=== PATIENT | male | born 1940 | race Caucasian/White ===

== ENCOUNTER 2018-12-21 09:42 | Outpatient (REF) | payer MEDICARE, BC, SELFPAY ==
[2018-12-21 13:50] LABS: Anion Gap 14.2 mmol/L (3-11); BUN 49 mg/dL (7-18); CO2 20.8 mmol/L (21.0-32.0); CREATININE 1.54 mg/dL (0.70-1.30); Calcium 9.3 mg/dL (8.5-10.1); Chloride 104 mmol/L (98-107); Estimated GFR 43.68 (mL/min/1.73m2); Glucose 126 mg/dL (70-100); Potassium 4.1 mmol/L (3.5-5.1); Sodium 139 mmol/L (136-145); TSH 2.72 uIU/mL (0.358-3.74)
== END 2018-12-21 10:02 ==
LOC: NCHCN 09:42
PROVIDERS: PCP Internal Medicine; Visit Provider Internal Medicine
DX: E03.9 Hypothyroidism, unspecified (principal); E11.9 Type 2 diabetes mellitus without complications
CPT/HCPCS: 80048; 84443

== ENCOUNTER 2018-12-21 12:05 | Outpatient (CLI) | payer MEDICARE, BC, SELFPAY ==
--- NOTE | 2018-12-21 10:09 | DI.RAD_ITS ---
SYMPTOM/DIAGNOSIS: SHOULDER PAIN, M25.512 LEFT SHOULDER: There is spurring at the undersurface of the acromion and mild spurring at the AC joint and glenoid. The glenohumeral joint is well maintained. Minimal spurring is seen at the greater and lesser tuberosities. No tendon or joint space calcifications are seen. IMPRESSION: Spurring at the undersurface of the acromion.
== END 2018-12-21 12:25 ==
PROVIDERS: PCP Internal Medicine; Visit Provider Internal Medicine
DX: M25.512 Pain in left shoulder (principal); M75.82 Other shoulder lesions, left shoulder
CPT/HCPCS: 73030

== ENCOUNTER → 2019-01-14 09:51 | Outpatient (BNVA) | payer MEDICARE, BC, SELFPAY | PROVIDERS: PCP Internal Medicine; Referring Provider Internal Medicine; Visit Provider Student in an Organized Health Care Education/Training Program | DX: M25.512 Pain in left shoulder (principal); M19.012 Primary osteoarthritis, left shoulder; I10 Essential (primary) hypertension | CPT/HCPCS: 20610; 99213; 99214; J1040 ==

== ENCOUNTER → 2019-02-25 09:00 | Outpatient (BNVA) | payer MEDICARE, BC, SELFPAY | PROVIDERS: PCP Internal Medicine; Referring Provider Internal Medicine; Visit Provider Student in an Organized Health Care Education/Training Program | DX: M75.82 Other shoulder lesions, left shoulder (principal); Z98.890 Other specified postprocedural states; I10 Essential (primary) hypertension; E11.9 Type 2 diabetes mellitus without complications | CPT/HCPCS: 99213 ==

== ENCOUNTER 2019-03-07 10:22 | Emergency (ER) | payer MEDICARE, BC, SELFPAY ==
[2019-03-07 10:29] VITALS: BP 156/95; PULSE 60; RESP 16; TEMP 36.5; O2SAT 98
--- NOTE | 2019-03-07 10:55 | W.ED.GENAD ---
Discharge Plan Disposition Patient Disposition: HOME Condition: Fair Discharge Details Chief Complaint: Orthopedic Clinical Impression: Tendonitis of left rotator cuff, Biceps tendinitis Primary Care Provider: Brady Brown ED Provider: Reva Jacobsen Home Meds and New Rx's Prescriptions: New ibuprofen 600 mg tablet 600 mg PO QID PRN (Reason: pain) Qty: 20 RF: 0 acetaminophen [Tylenol Extra Strength] 500 mg tablet 500 mg PO Q6H PRN (Reason: pain) Qty: 20 RF: 0 Continued Lactobacillus acidophilus 1 EACH capsule 1 ea PO DAILY RF: 0 acyclovir 400 MG tablet 400 mg PO DAILY RF: 0 simvastatin 40 MG tablet 40 mg PO DAILY RF: 0 tamsulosin 0.4 MG capsule 0.4 mg PO DAILY RF: 0 levothyroxine 50 MCG tablet 50 mcg PO DAILY RF: 0 omeprazole 20 MG capsule,delayed release(DR/EC) 20 mg PO DAILY RF: 0 allopurinol 300 MG tablet 300 mg PO DAILY RF: 0 hydrochlorothiazide 25 MG tablet 25 mg PO DAILY RF: 0 lisinopril 40 MG tablet 40 mg PO DAILY RF: 0 methylphenidate HCl [Concerta] 36 MG tablet extended release 24hr 36 mg PO DAILY RF: 0 Discharge Instructions Instructions: Tendinitis (ED) Additional Instructions: Encourage hydration. Please continue with exercises as advised by orthopedics. Do not do this with weight, gentle range of motion exercises only. Tylenol and/or ibuprofen as prescribed to help with discomfort. You may try topical options such as Lidoderm or Salonpas patches. Please follow-up with orthopedics as discussed. MRI order has been placed by Dr. Eng. Please contact physical therapy and begin this to help with discomfort. If you develop fever/chills, increased pain or other new/worsening symptoms please seek care urgently once again Referrals: Andre Eng MD [ [facility] STAFF PHYSICIAN] - Discharge Data Discharge Date/Time-TO BE ENTERED AT DEPARTURE: 03/07/19 11:24 Medical Decision Making Patient is an 78-year-old [id number] male presents today with chief complaint of left shoulder pain. Patient has had chronic left shoulder pain, has been evaluated by orthopedics historically. Underwent a injection for rotator cuff tendinitis approximately 2 months ago with good results. He has had multiple flares. Reports that 3 days ago he was using a chainsaw overhead when the pain came back with a vengeance. States that since that time he has had increased pain. Has been using Aleve with minimal results. Denies any fevers or chills. Did not fall or have any acute trauma to the shoulder. No erythema or warmth. Denies any new altered sensation although he does endorse chronic numbness along the ulnar nerve distribution which remains unchanged On exam, patient appears comfortable and nontoxic appearing. Shoulder is not swollen or erythematous. No warmth to palpation. He is point tender over the biceps tendon with a positive speeds exam. He is tender with internal and external rotation, the pain is limiting exam. I am concerned for rotator cuff injury, perhaps progression of previous injury. As the patient has seen Dr. Eng historically, I did consult with him to let him know about the progression. He did come and evaluate the patient advises that this is likely acute flare with possible worsening of his prior rotator cuff tear. He encouraged use of ibuprofen. I will also augment this with Tylenol and lidocaine patch. He advised the patient seek physical therapy, they are to have a referral from orthopedics. He was scheduled for an outpatient MRI. Discussed this plan with the patient and his were in agreement. HPI General Mode of arrival: ambulatory. Date/Time Provider Initiated Documentation: 03/07/19 10:30. Limitations to Documentation: no limitations. Information obtained by: patient, family (accompanied by ) and RN notes reviewed. History of Present Illness 78 year old M presents to the emergency department with the chief complaint of left shoulder pain, described as severe, with intensity rated at 9. Quality is described as stabbing, and is localized to the left and upper extremity. Patient reports no radiation. Patient started experiencing this month(s) (with exacerbaton 3 days ago) and it has been intermittent. Immobilization improves symptom(s), Movement worsens symptoms . Patient notes no other symptoms.; denies chest pain, cough, fever/chills, headaches, nausea/vomiting, rash, shortness of breath and weakness. Patient did receive the following treatments prior to arrival, none Related Data Home Medications Medication Instructions Recorded Confirmed acyclovir 400 mg PO DAILY 03/07/13 03/07/19 allopurinol 300 mg PO DAILY 03/07/13 03/07/19 hydrochlorothiazide 25 mg PO DAILY 03/07/13 03/07/19 levothyroxine 50 mcg PO DAILY 03/07/13 03/07/19 lisinopril 40 mg PO DAILY 03/07/13 03/07/19 methylphenidate HCl [Concerta] 36 mg PO DAILY 03/07/13 03/07/19 omeprazole 20 mg PO DAILY 03/07/13 03/07/19 simvastatin 40 mg PO DAILY 03/07/13 03/07/19 tamsulosin 0.4 mg PO DAILY 03/07/13 03/07/19 Lactobacillus acidophilus 1 ea PO DAILY 11/30/15 03/07/19 acetaminophen [Tylenol Extra 500 mg PO Q6H PRN #20 tab 03/07/19 Strength] ibuprofen 600 mg PO QID PRN #20 tab 03/07/19 Previous Rx's Medication Instructions Recorded acetaminophen [Tylenol Extra 500 mg PO Q6H PRN #20 tab 03/07/19 Strength] ibuprofen 600 mg PO QID PRN #20 tab 03/07/19 Allergies Allergy/AdvReac Type Severity Reaction Status Date / Time tolmetin Allergy Unknown Unverified 03/07/19 10:34 General Stated Complaint: Orthopedic MICHAEL: 4 Review of Systems Constitutional Reports as per HPI, Denies chills, Denies fever(s), Denies headache(s) and Denies weakness ENT Denies headache(s) Cardiovascular Reports as per HPI Respiratory Reports as per HPI and Denies cough Musculoskeletal Reports as per HPI and Denies tingling Integumentary/Breasts Reports as per HPI, Denies rash and Denies wounds Neurologic Reports as per HPI, Denies headache(s), Denies tingling, Reports paresthesias (chronic ulnar paresthesias, no acute change in this) and Denies weakness [facility] Medical History Diabetes Gout Hypertension Hypothyroid Surgical History Cholecystectomy Social History Smoking/Tobacco Use Status: Former Tobacco Use Alcohol Intake: never Drug use: Never Do you feel safe at home: Yes Do you feel safe in your relationship?: Yes Exam Const General: cooperative, healthy appearing, comfortable, no acute distress, well developed and well groomed Nutritional Appearance: average body habitus and well nourished Orientation: alert and awake Chest Chest: normal inspection of the chest and normal palpation of entire chest wall Resp Effort & Inspection: normal respiratory effort, able to speak in complete sentences and no respiratory distress Cardio Rate: regular rate Rhythm: regular rhythm Back/Spine/Pelvis Cervical Spine: normal cervical lordosis, cervical ROM normal, No cervical muscular tenderness, No pain with cervical ROM, No cervical spasm and No cervical spinal tenderness Thoracic/Lumbar Spine: thoracic and lumbar spine normal to inspection Skin General skin exam: no rashes or lesions noted Lesions: no lesions Rashes: no rashes Trauma: no lacerations or abrasions Neuro General: alert and awake Cognition: normal cognition Speech: speech normal Gait: normal gait Motor: muscle tone normal throughout Sensory Exam: no sensory deficits noted Extrem General: normal capillary refill, no joint enlargement and normal gait Right upper extremity: normal to inspection Left upper extremity: normal capillary refill, no joint enlargement, shoulder/upper arm Details: tenderness Location: over the biceps tendon and over the subacromial bursa, axillary nerve sensory function normal, abnormal ROM Details: pain with active ROM Details: in extension (past 30*), in flexion (past 90*) and in internal rotation (very limited) and pain with passive ROM Details: in extension and in internal rotation and other (+Speeds, +Neer and Hawkin); no swelling, no abrasions, no lacerations, no ecchymosis, no crepitus, no foreign bodies, no penetrating wound, no deformity and no unsual warmth, elbow/forearm Details: normal to inspection; no tenderness and no swelling and hand (5/5 salt grinder strength); ROM limited Psych Appearance: grossly normal and well kempt Mental Status: mental status grossly normal Speech and Movement: speech and movement normal Course Vital Signs Temperature 36.5 C 03/07/19 10:29 Pulse 60 03/07/19 10:29 Respiratory Rate 16 03/07/19 10:29 Blood Pressure 156/95 H 03/07/19 10:29 Pulse Oximetry 98 03/07/19 10:29 Temperature 36.5 C 03/07/19 10:29 Temperature Source Temporal Artery Scan 03/07/19 10:29 Pulse 60 03/07/19 10:29 Respiratory Rate 16 03/07/19 10:29 Respiratory Effort Non-Labored 03/07/19 10:32 Blood Pressure 156/95 H 03/07/19 10:29 Blood Pressure Position Sitting 03/07/19 10:29 Pulse Oximetry 98 03/07/19 10:29 Oxygen Delivery Method Room Air 03/07/19 10:29 Oxygen Flow Rate 0 03/07/19 10:29 Pain Level 9 03/07/19 10:32 Comment 03/07/19 10:29
--- NOTE | 2019-03-07 11:09 | ED.GENADUL_ITS ---
Discharge Plan Disposition Patient Disposition: HOME Condition: Fair Discharge Details Chief Complaint: Orthopedic Clinical Impression: Tendonitis of left rotator cuff, Biceps tendinitis Primary Care Provider: Brady Brown ED Provider: Reva Jacobsen Home Meds and New Rx's Prescriptions: New ibuprofen 600 mg tablet 600 mg PO QID PRN (Reason: pain) Qty: 20 RF: 0 acetaminophen [Tylenol Extra Strength] 500 mg tablet 500 mg PO Q6H PRN (Reason: pain) Qty: 20 RF: 0 Continued Lactobacillus acidophilus 1 EACH capsule 1 ea PO DAILY RF: 0 acyclovir 400 MG tablet 400 mg PO DAILY RF: 0 simvastatin 40 MG tablet 40 mg PO DAILY RF: 0 tamsulosin 0.4 MG capsule 0.4 mg PO DAILY RF: 0 levothyroxine 50 MCG tablet 50 mcg PO DAILY RF: 0 omeprazole 20 MG capsule,delayed release(DR/EC) 20 mg PO DAILY RF: 0 allopurinol 300 MG tablet 300 mg PO DAILY RF: 0 hydrochlorothiazide 25 MG tablet 25 mg PO DAILY RF: 0 lisinopril 40 MG tablet 40 mg PO DAILY RF: 0 methylphenidate HCl [Concerta] 36 MG tablet extended release 24hr 36 mg PO DAILY RF: 0 Discharge Instructions Instructions: Tendinitis (ED) Additional Instructions: Encourage hydration. Please continue with exercises as advised by orthopedics. Do not do this with weight, gentle range of motion exercises only. Tylenol and/or ibuprofen as prescribed to help with discomfort. You may try topical options such as Lidoderm or Salonpas patches. Please follow-up with orthopedics as discussed. MRI order has been placed by Dr. Eng. Please contact physi marlon therapy and begin this to help with discomfort. If you develop fever/chills, increased pain or other new/worsening symptoms please seek care urgently once again Referrals: Andre Eng MD [ [facility] STAFF PHYSICIAN] - Discharge Data Discharge Date/Time-TO BE ENTERED AT DEPARTURE: 03/07/19 11:24 Medical Decision Making Patient is an 78-year-old [id number] male presents today with chief complaint of left shoulder pain. Patient has had chronic left shoulder pain, has been evaluated by orthopedics historically. Underwent a injection for rotator cuff tendinitis approximately 2 months ago with good results. He has had multiple flares. Reports that 3 days ago he was using a chainsaw overhead when the pain came back with a vengeance. States that since that time he has had increased pain. Has been using Aleve with minimal results. Denies any fevers or chills. Did not fall or have any acute trauma to the shoulder. No erythema or warmth. Denies any new altered sensation although he does endorse chronic numbness along the ulnar nerve distribution which remains unchanged On exam, patient appears comfortable and nontoxic appearing. Shoulder is not swollen or erythematous. No warmth to palpation. He is point tender over the biceps tendon with a positive speeds exam. He is tender with internal and external rotation, the pain is limiting exam. I am concerned for rotator cuff injury, perhaps progression of previous injury. As the patient has seen Dr. Eng historically, I did consult with him to let him know about the progression. He did come and evaluate the patient advises that this is likely acute flare with possible worsening of his prior rotator cuff tear. He enc ouraged use of ibuprofen. I will also augment this with Tylenol and lidocaine patch. He advised the patient seek physical therapy, they are to have a referral from orthopedics. He was scheduled for an outpatient MRI. Discussed this plan with the patient and his were in agreement. HPI General Mode of arrival: ambulatory . Date/Time Provider Initiated Documentation: 03/07/19 10:30 . Limitations to Documentation: no limitations . Information obtained by: patient, family (accompanied by ) and RN notes reviewed . History of Present Illness 78 year old M presents to the emergency department with the chief complaint of left shoulder pain, described as severe, with intensity rated at 9. Quality is described as stabbing, and is localized to the left and upper extremity. Patient reports no radiation. Patient started experiencing this month(s) (with exacerbaton 3 days ago) and it has been intermittent. Immobilization improves symptom(s), Movement worsens symptoms . Patient notes no other symptoms.; denies chest pain, cough, fever/chills, headaches, nausea/vomiting, rash, shortness of breath and weakness. Patient did receive the following treatments prior to arrival, none Related Data Home Medications Medication Instructions Recorded Confirmed acyclovir 400 mg PO DAILY 03/07/13 03/07/19 allopurinol 300 mg PO DAILY 03/07/13 03/07/19 hydrochlorothiazide 25 mg PO DAILY 03/07/13 03/07/19 levothyroxine 50 mcg PO DAILY 03/07/13 03/07/19 lisinopril 40 mg PO DAILY 03/07/13 03/07/19 methylphenidate HCl [Concerta] 36 mg PO DAILY 03/07/13 03/07/19 omeprazole 20 mg PO DAILY 03/07/13 03/07/19 simvastatin 40 mg PO DAILY 03/07/13 03/07/19 tamsulosin 0.4 mg PO DAILY 03/07/13 03/07/19 Lactobacillus acidophilus 1 ea PO DAILY 11/30/15 03/07/19 acetaminophen [Tylenol Extra 500 mg PO Q6H PRN #20 tab 03/07/19 Strength] ibuprofen 600 mg PO QID PRN #20 tab 03/07/19 Previous Rx's Medication Instructions Recorded acetaminophen [Tylenol Extra 500 mg PO Q6H PRN #20 tab 03/07/19 Strength] ibuprofen 600 mg PO QID PRN #20 tab 03/07/19 Allergies Allergy/AdvReac Type Severity Reaction Status Date / Time tolmetin Allergy Unknown Unverified 03/07/19 10:34 General Stated Complaint: Orthopedic MICHAEL: 4 Review of Systems Constitutional Reports as per HPI, Denies chills, Denies fever(s), Denies headache(s) and Denies weakness ENT Denies headache(s) Cardiovascular Reports as per HPI Respiratory Reports as per HPI and Denies cough Musculoskeletal Reports as per HPI and Denies tingling Integumentary/Breasts Reports as per HPI, Denies rash and Denies wounds Neurologic Reports as per HPI, Denies headache(s), Denies tingling, Reports paresthesias (chronic ulnar paresthesias, no acute change in this) and Denies weakness [facility] Medical History Diabetes Gout Hypertension Hypothyroid Surgical History Cholecystectomy Social History Smoking/Tobacco Use Status: Former Tobacco Use Alcohol Intake: never Drug use: Never Do you feel safe at home: Yes Do you feel safe in your relationship?: Yes Exam Const General: cooperative, healthy appearing, comfortable, no acute distress, well developed and well groomed Nutritional Appearance: average body habitus and well nourished Orientation: alert and awake Chest Chest: normal inspection of the chest and normal palpation of entire chest wall Resp Effort & Inspection: normal respiratory effort, able to speak in complete sentences and no respiratory distress Cardio Rate: regular rate Rhythm: regular rhythm Back/Spine/Pelvis Cervical Spine: normal cervical lordosis, cervical ROM normal, No cervical muscular tenderness, No pain with cervical ROM, No cervical spasm and No cervical spinal tenderness Thoracic/Lumbar Spine: thoracic and lumbar spine normal to inspection Skin General skin exam: no rashes or lesions noted Lesions: no lesions Rashes: no rashes Trauma: no lacerations or abrasions Neuro General: alert and awake Cognition: normal cognition Speech: speech normal Gait: normal gait Motor: muscle tone normal throughout Sensory Exam: no sensory deficits noted Extrem General: normal capillary refill, no joint enlargement and normal gait Right upper extremity: normal to inspection Left upper extremity: normal capillary refill, no joint enlargement, shoulder/upper arm Details: tenderness Location: over the biceps tendon and over the subacromial bursa, axillary nerve sensory function normal, abnormal ROM Details: pain with active ROM Details: in extension (past 30*), in flexion (past 90*) and in internal rotation (very limited) and pain with passive ROM Details: in extension and in internal rotation and other (+Speeds, +Neer and Hawkin); no swelling, no abrasions, no lacerations, no ecchymosis, no crepitus, no foreign bodies, no penetrating wound, no deformity and no unsual warmth, elbow/forearm Details: normal to inspection; no tenderness and no swelling and hand (5/5 day camp counselor strength); ROM limited Psych Appearance: grossly normal and well kempt Mental Status: mental status grossly normal Speech and Movement: speech and movement normal Course Vital Signs Temperature 36.5 C 03/07/19 10:29 Pulse 60 03/07/19 10:29 Respiratory Rate 16 03/07/19 10:29 Blood Pressure 156/95 H 03/07/19 10:29 Pulse Oximetry 98 03/07/19 10:29 Temperature 36.5 C 03/07/19 10:29 Temperature Source Temporal Artery Scan 03/07/19 10:29 Pulse 60 03/07/19 10:29 Respiratory Rate 16 03/07/19 10:29 Respiratory Effort Non-Labored 03/07/19 10:32 Blood Pressure 156/95 H 03/07/19 10:29 Blood Pressure Position Sitting 03/07/19 10:29 Pulse Oximetry 98 03/07/19 10:29 Oxygen Delivery Method Room Air 03/07/19 10:29 Oxygen Flow Rate 0 03/07/19 10:29 Pain Level 9 03/07/19 10:32 Comment 03/07/19 10:29
[2019-03-07 11:11] VITALS: BP 156/95; PULSE 60; RESP 16; TEMP 36.5; O2SAT 98
[2019-03-07] MEDS: Lidocaine 5% Patch 1 PATCH TP (11:11)
== END 2019-03-07 11:24 | disposition home or self-care (01) ==
PROVIDERS: Emergency Provider Physician Assistant; PCP Internal Medicine
DX: M75.82 Other shoulder lesions, left shoulder (principal); M75.22 Bicipital tendinitis, left shoulder
CPT/HCPCS: 99283

== ENCOUNTER 2019-04-16 12:05 | Outpatient (REF) | payer MEDICARE, BC, SELFPAY ==
[2019-04-16 21:31] LABS: Abs Immature Grans 0.01 k/cumm (0.0-0.09); Absolute Basophil Count 0.03 k/cumm (0.0-0.2); Absolute Lymphocyte Count 1.75 k/cumm (1.2-3.4); Absolute Monocyte Count 0.62 k/cumm (0.11-0.7); Absolute Neutrophil Count 3.91 k/cumm (1.2-6.7); Basophils % 0.5; Eosinophils % 3.1; HCT 41.4 % (40.0-50.0); HGB 14.3 g/dL (13.5-17.5); Immature Grans % 0.2; Lymphocytes % 26.8; Mean Corp. HGB Concentration 34.5 g/dL (32.0-36.0); Mean Corpuscular Hemoglobin 32.3 pg (27.0-33.0); Mean Corpuscular Volume 93.5 fL (80-95); Mean Platelet Volume 10.2 fL (8.0-11.0); Monocytes % 9.5; Neutrophils % 59.9; Platelet Count 180 x1000/uL (130-400); RBC 4.43 m/cumm (4.50-6.00); RBC Distribution Width 14.4 % (11.8-14.1); White Blood Cell Count 6.52 k/cumm (4.4-10.8)
[2019-04-16 22:40] LABS: ALT 20 U/L (12-78); AST 10 U/L (15-37); Alkaline Phosphatase 104 U/L (46-116); Anion Gap 16.2 mmol/L (3-11); Bilirubin, Total 0.4 mg/dL (0.2-1.0); CO2 16.8 mmol/L (21.0-32.0); CREATININE 2.73 mg/dL (0.70-1.30); Calcium 9.4 mg/dL (8.5-10.1); Chloride 104 mmol/L (98-107); Estimated GFR 22.56 (mL/min/1.73m2); Glucose 108 mg/dL (70-100); Lipase 384 U/L (73-393); Potassium 4.8 mmol/L (3.5-5.1); Sodium 137 mmol/L (136-145); TSH 1.74 uIU/mL (0.358-3.74); Total Protein 7.3 g/dL (6.4-8.2)
[2019-04-16 23:09] LABS: BUN 88 mg/dL (7-18)
== END 2019-04-16 12:25 ==
LOC: NCHCN 12:05
PROVIDERS: PCP Internal Medicine; Visit Provider Internal Medicine
DX: R53.83 Other fatigue (principal); R11.0 Nausea
CPT/HCPCS: 80053; 83690; 84443; 85025

== ENCOUNTER 2019-04-18 13:37 | Outpatient (REF) | payer MEDICARE, BC, SELFPAY ==
[2019-04-18 21:25] LABS: CREATININE 2.45 mg/dL (0.70-1.30); Estimated GFR 25.56 (mL/min/1.73m2)
[2019-04-18 22:27] LABS: BUN 81 mg/dL (7-18)
== END 2019-04-18 13:57 ==
LOC: NCHCN 13:37
PROVIDERS: PCP Family Medicine; Visit Provider Family Medicine
DX: N18.3 Chronic kidney disease, stage 3 (moderate) (principal)
CPT/HCPCS: 84520; 82565

== ENCOUNTER 2019-04-23 01:01 | Outpatient (CLI) | payer MEDICARE, BC, SELFPAY ==
--- NOTE | 2019-04-23 15:44 | DI.US_ITS ---
SYMPTOM/DIAGNOSIS: ACUTE CHRONIC KIDNEY INJURY, N17.9 RENAL ULTRASOUND: The right kidney measures 10.4 by 6.4 by 5.8 cm. The left kidney measures 10.8 by 5.3 by 6.4 cm. There is no evidence of nephrolithiasis or hydronephrosis. The prevoid bladder contains 198 cc's. The postvoid bladder contains 70 cc's. Both ureteral jets were visualized. The prostate is enlarged measuring up to 78 cc's. IMPRESSION: No evidence of nephrolithiasis or hydronephrosis or a mass. Prostatic enlargement is demonstrated. There is some increase in the postvoid residual.
== END 2019-04-23 01:21 ==
PROVIDERS: PCP Internal Medicine; Visit Provider Internal Medicine
DX: N17.9 Acute kidney failure, unspecified (principal); N40.0 Benign prostatic hyperplasia without lower urinary tract symptoms
CPT/HCPCS: 76770

== ENCOUNTER 2019-04-26 12:23 | Outpatient (REF) | payer MEDICARE, BC, SELFPAY ==
[2019-04-26 21:18] LABS: Anion Gap 12.8 mmol/L (3-11); BUN 45 mg/dL (7-18); CO2 18.2 mmol/L (21.0-32.0); CREATININE 1.65 mg/dL (0.70-1.30); Calcium 8.9 mg/dL (8.5-10.1); Chloride 108 mmol/L (98-107); Estimated GFR 40.34 (mL/min/1.73m2); Glucose 106 mg/dL (70-100); Potassium 4.4 mmol/L (3.5-5.1); Sodium 139 mmol/L (136-145)
== END 2019-04-26 12:43 ==
LOC: NCHCN 12:23
PROVIDERS: PCP Internal Medicine; Visit Provider Internal Medicine
DX: N17.9 Acute kidney failure, unspecified (principal); R94.4 Abnormal results of kidney function studies; E11.9 Type 2 diabetes mellitus without complications; I10 Essential (primary) hypertension
CPT/HCPCS: 80048

== ENCOUNTER 2019-06-27 17:00 | Outpatient (REF) | payer MEDICARE, BC, SELFPAY ==
[2019-06-27 21:27] LABS: Anion Gap 14.2 mmol/L (3-11); BUN 64 mg/dL (7-18); CO2 18.8 mmol/L (21.0-32.0); Calcium 9.3 mg/dL (8.5-10.1); Chloride 107 mmol/L (98-107); Estimated GFR 32.31 (mL/min/1.73m2); Glucose 102 mg/dL (70-100); Potassium 4.6 mmol/L (3.5-5.1); Sodium 140 mmol/L (136-145)
== END 2019-06-27 17:20 ==
LOC: NCHCN 17:00
PROVIDERS: PCP Internal Medicine; Visit Provider Internal Medicine
DX: N17.9 Acute kidney failure, unspecified (principal)
CPT/HCPCS: 80048

== ENCOUNTER 2019-07-26 13:01 | Outpatient (REF) | payer MEDICARE, BC, SELFPAY ==
[2019-07-26 21:36] LABS: Anion Gap 11.3 mmol/L (3-11); BUN 40 mg/dL (7-18); CO2 21.7 mmol/L (21.0-32.0); CREATININE 1.58 mg/dL (0.70-1.30); Calcium 9.2 mg/dL (8.5-10.1); Chloride 107 mmol/L (98-107); Glucose 110 mg/dL (70-100); Potassium 4.3 mmol/L (3.5-5.1); Sodium 140 mmol/L (136-145)
== END 2019-07-26 13:21 ==
LOC: NCHCN 13:01
PROVIDERS: PCP Internal Medicine; Visit Provider Internal Medicine
DX: E11.9 Type 2 diabetes mellitus without complications (principal); N18.3 Chronic kidney disease, stage 3 (moderate); I10 Essential (primary) hypertension
CPT/HCPCS: 80048

== ENCOUNTER → 2019-08-26 13:22 | Outpatient (BNVA) | payer MEDICARE, BC, SELFPAY | PROVIDERS: PCP Internal Medicine; Referring Provider Internal Medicine; Visit Provider Student in an Organized Health Care Education/Training Program | DX: M75.82 Other shoulder lesions, left shoulder (principal); Z98.890 Other specified postprocedural states | CPT/HCPCS: 99213 ==

== ENCOUNTER 2019-08-29 02:19 | Outpatient (CLI) | payer MEDICARE, BC, SELFPAY ==
--- NOTE | 2019-08-29 13:47 | DI.MRI_ITS ---
EXAM: MR UPPER JOINT LT WO CLINICAL HISTORY: continued left shoulder pain, tendinitis of lt rotator cuff, M75.82. TECHNIQUE: Multiplanar multisequence MRI was performed. COMPARISON: No previous for comparison. FINDINGS: There is some patient motion artifact. There is a full-thickness tear of the supraspinatus tendon at its insertion site onto the greater tub erosity. There is a gap of approximately 1.2 centimeters. There is increased signal seen in the subscapularis tendon at its insertion site consistent with a pa rtial tear. The infraspinatus and teres minor tendons are intact. The biceps tendon has a normal appearance and location. The glenoid labrum is grossly unremarkable. The articular cartilage of the glenohumeral joint is unremarkable. The ligaments appear grossly unremarkable. There are degenerative changes seen at the greater tuberosity, the acromioclavicular joint and the la teral acromion. No findings to suggest an occult fracture or avascular necrosis are present. There is fluid seen in the subacromial-subdeltoid bursa consistent with a full-thickness rotator cuff tear. No soft tissue mass or other focal fluid collection is appreciated. IMPRESSION: 1. Full-thickness tear of the supraspinatus tendon. 2. Partial tear of the subscapularis tendon.
== END 2019-08-29 02:39 ==
PROVIDERS: PCP Internal Medicine; Visit Provider Physician Assistant
DX: M25.512 Pain in left shoulder (principal); M75.82 Other shoulder lesions, left shoulder; M75.101 Unspecified rotator cuff tear or rupture of right shoulder, not specified as traumatic; S46.011A Strain of muscle(s) and tendon(s) of the rotator cuff of right shoulder, initial encounter
CPT/HCPCS: 73221

== ENCOUNTER → 2019-10-21 09:30 | Outpatient (BNVA) | payer MEDICARE, BC, SELFPAY | PROVIDERS: PCP Internal Medicine; Referring Provider Internal Medicine; Visit Provider Student in an Organized Health Care Education/Training Program | DX: M75.122 Complete rotator cuff tear or rupture of left shoulder, not specified as traumatic (principal) | CPT/HCPCS: 99213 ==

== ENCOUNTER 2019-11-06 06:02 | Day surgery (SDC) | payer MEDICARE, BC, SELFPAY ==
--- NOTE | 2019-11-05 07:38 | NUR.NOTE ---
11/05 0730: Spoke with pt. regarding stuffy nose and cough this morning. Pt. stated he is feeling much better, and his stuffy nose isn't anything out of the ordinary for him he states during the winter he usually has a slight stuffy nose, and he is no longer actively coughing, he stated in the morning he will have some production of a small amount of sputum, stated he is afebrile. Anesthesia aware, spoke with OUSMANE Hernandez. Stated he should be okay for surgery, but anesthesia will assess him upon arrival. Pt. and anesthesia are in agreement of this plan. Nursing Note:
[2019-11-06] VITALS (10 sets, daily range): BP systolic 104–160; BP diastolic 52–94; PULSE 64–86; RESP 14–20; TEMP 36–36.6; O2SAT 92–96
[2019-11-06] MEDS: Lactated Ringers 1,000 ML 80 ML IV (07:00)
--- NOTE | 2019-11-06 07:18 | PDOC.DSDIS_ITS ---
Discharge Plan Disposition Patient Disposition: HOME Condition: Good Discharge Details Reason For Visit: RTC REPAIR Attending Provider: Andre Eng Primary Care Provider: Brady Brown Meds and New Rx's Prescriptions: New acetaminophen 500 mg tablet 1,000 mg PO Q8H PRN (Reason: pain) Qty: 90 RF: 3 aspirin 81 mg tablet,delayed release (DR/EC) 81 mg PO BID Qty: 28 RF: 0 ibuprofen 600 mg tablet 600 mg PO TID PRNQty: 90 RF: 3 oxycodone 5 mg tablet 5 mg PO Q4H Qty: 15 RF: 0 Continued Lactobacillus acidophilus 1 EACH capsule 1 ea PO DAILY RF: 0 acyclovir 400 MG tablet 400 mg PO DAILY RF: 0 simvastatin 40 MG tablet 40 mg PO DAILY RF: 0 tamsulosin 0.4 MG capsule 0.8 mg PO DAILY RF: 0 levothyroxine 50 MCG tablet 50 mcg PO DAILY RF: 0 omeprazole 20 MG capsule,delayed release(DR/EC) 20 mg PO DAILY RF: 0 allopurinol 300 MG tablet 150 mg PO DAILY RF: 0 lisinopril 40 MG tablet 40 mg PO DAILY RF: 0 polyethylene glycol 3350 17 gram/dose Powder 17 g PO DAILY RF: 0 Discontinued methylphenidate HCl [Concerta] 36 MG tablet extended release 24hr 36 mg PO DAILY RF: 0 acetaminophen [Tylenol Extra Strength] 500 mg tablet 500 mg PO Q6H PRN (Reason: pain) Qty: 20 RF: 0 Discharge Instructions Stand Alone Forms: Velasquez Shin w/[facility] Referrals: Andre Eng MD [ [facility] STAFF PHYSICIAN] - Equipment/Supplies: Sling Activity:: In sling except for hygiene and pendulum Remove Dressings/Wound Care:: 72 hours Shower/Bathe:: 72 hours Diet:: As Tolerated Discharge Orders Discharge Orders: Discharge Order (Routine); Ordered 11/06/19 Ordered By: Andre Eng DS: Diagnosis Discharge Diagnosis (1) Tendonitis of left rotator cuff: Status: Chronic
[2019-11-06] MEDS: ceFAZolin 2 GM/50 ML BAG IVPB (08:11)
[2019-11-06] MEDS: EPINEPHrine 1 MG/ML AMP pres-free (08:46)
--- NOTE | 2019-11-06 10:05 | W.PM.DSUDISC ---
Discharge Plan Disposition Patient Disposition: HOME Condition: Good Discharge Details Reason For Visit: RTC REPAIR Attending Provider: Andre Eng Primary Care Provider: Brady Brown Meds and New Rx's Prescriptions: New acetaminophen 500 mg tablet 1,000 mg PO Q8H PRN (Reason: pain) Qty: 90 RF: 3 aspirin 81 mg tablet,delayed release (DR/EC) 81 mg PO BID Qty: 28 RF: 0 ibuprofen 600 mg tablet 600 mg PO TID PRNQty: 90 RF: 3 oxycodone 5 mg tablet 5 mg PO Q4H Qty: 15 RF: 0 methylphenidate HCl [Concerta] 36 mg tablet extended release 24hr 36 mg PO DAILY Qty: 30 RF: 0 Continued Lactobacillus acidophilus 1 EACH capsule 1 ea PO DAILY RF: 0 acyclovir 400 MG tablet 400 mg PO DAILY RF: 0 simvastatin 40 MG tablet 40 mg PO DAILY RF: 0 tamsulosin 0.4 MG capsule 0.8 mg PO DAILY RF: 0 levothyroxine 50 MCG tablet 50 mcg PO DAILY RF: 0 omeprazole 20 MG capsule,delayed release(DR/EC) 20 mg PO DAILY RF: 0 allopurinol 300 MG tablet 150 mg PO DAILY RF: 0 lisinopril 40 MG tablet 40 mg PO DAILY RF: 0 polyethylene glycol 3350 17 gram/dose Powder 17 g PO DAILY RF: 0 Discontinued methylphenidate HCl [Concerta] 36 MG tablet extended release 24hr 36 mg PO DAILY RF: 0 acetaminophen [Tylenol Extra Strength] 500 mg tablet 500 mg PO Q6H PRN (Reason: pain) Qty: 20 RF: 0 Discharge Instructions Stand Alone Forms: Anes.Nerve Block Instructions, Velasquez Shin w/RCR, DSU Post op Instructions, Daniela Oliveros (DSU) Referrals: nAdre Eng MD [ [facility] STAFF PHYSICIAN] - Equipment/Supplies: Sling Activity:: In sling except for hygiene and pendulum Remove Dressings/Wound Care:: 72 hours Shower/Bathe:: 72 hours Diet:: As Tolerated Discharge Orders Discharge Orders: Discharge Order (Routine); Ordered 11/06/19 Ordered By: Andre Eng DS: Diagnosis Discharge Diagnosis (1) Tendonitis of left rotator cuff: Status: Chronic
[2019-11-06] MEDS: Tamsulosin 0.4 MG CAPCR 0.8 MG PO (14:19)
--- NOTE | 2019-11-07 06:31 | ROE_ITS ---
Date of service: 11/06/19 Time of Service: 10:31 Operative Note Operative Note DATE OF PROCEDURE: 11/06/19 PRE-OP DIAGNOSIS: Left rotator cuff tear, biceps tendinitis POST-OP DIAGNOSIS: other (Left rotator cuff tear and biceps tear) PROCEDURE: - Arthroscopic Rotator Cuff Repair - Extensive debridement of anterior and posterior glenohumeral joint and rotator cuff - Biceps tenotomy - Subacromial Debridement with Acromioplasty SURGEON: Andre Eng IMAGE ARCHIVIST: Thad Dobbs ANESTHESIA: GETA and regional ESTIMATED BLOOD LOSS: 0 PATHOLOGY: none sent COMPLICATIONS: None Patient was transported to: PACU Patient's condition: stable Indications: I have seen Stef in clinic for a painful shoulder. Pathology was confirmed based on MRI and exam findings. Nonoperative measures were exhausted but disability and pain persisted. I discussed shoulder arthroscopy and procedures. I reviewed the risks of the procedures to include, but not limited to, bleeding, infection, pain, stiffness, damage to nerves or vessels, recurrence, hardware failure, blood clot. Despite these risks, the patient elected to proceed. Findings: A diagnostic arthroscopy was performed with the following findings: Articular Side - Glenohumeral Joint: No significant arthritic change - Labrum: Mild anterior and superior fraying - Cuff: Minimal fraying at the insertion of the upper subscapularis, complete full-thickness tear of the supraspinatus - Biceps: Significant tearing of the intra-articular portion of the biceps involving greater than 50% of the biceps tendon Subacromial Side - Bursal: Some thickened inflammatory changes - Rotator Cuff: Complete full-thickness supraspinatus tear - Mild anterior lateral spur Procedure Description: Stef was greeted in the preoperative holding area where the correct side was identified and marked. The consent was reviewed with the patient and signed. The history and physical was updated. All questions were answered. He was taken back to the PACU for administration of an intrascalene nerve block. He was then taken to the operating room. The patient was placed into the supine position on the operating room table. A general anesthetic was administered. Stef was then positioned in the beach chair position. All bony prominences were well padded. The head was placed in a foam head baggage porter in a neutral position. Prophylactic antibiotics in the form of cefazolin were administered. The left arm/shoulder was then prepped with Chloraprep and draped in a standard fashion with stockinette and shoulder drape. A timeout to confirm correct identity, side and site, procedure, allergies, anesthesia, and medical concerns was performed. The arm was placed into a pneumatic denis, [id number]. The shoulder arthroscopy was then performed. The glenohumeral joint was injected with 20 cc of normal saline with good flow back. A standard posterior portal was made and the joint was entered atraumatically with a blunt arthroscope. Once inside we had good visualization of the structures of the glenohumeral joint. An anterior portal was established with spinal needle localization. A 6.5 mm cannula was inserted. A probe was then used to perform a diagnostic arthroscopy. There is noted to be no significant cartilage damage of the glenoid humeral joint. The labrum was intact anteriorly and posteriorly with only some minor fraying. There were no loose bodies in the inferior pouch. The superior rotator cuff was torn completely and the anterior aspect of the greater tuberosity. The biceps tendon was torn intra-articularly involving greater than 50% of the tendon. The subscapularis was intact with some fraying at its insertion of the upper portion. The areas of fraying were debrided. The undersurface of the torn rotator cuff, supraspinatus tendon, was debrided as well. The labrum was debrided from anterior to posterior removing any frayed tissue. A biceps tenotomy was performed with electrocautery. The arthroscope was then inserted into the subacromial space. The 6.5 mm cannula was placed lateral to the CA ligament. A complete bursectomy is performed anteriorly, posteriorly, and laterally with electrocautery and shaver. This had excellent exposure of the rotator cuff. The bursal side rotator cuff was inspected and did show the known supraspinatus tear but no other pathology. There was a very small anterolateral spur. Using a spinal needle a anterior lateral portal was established. This became the working portal. A second posterior lateral portal was established for viewing. This had excellent visualization of the rotator cuff. The torn edge was debrided down to healthy tissue. Using a shaver I removed any remnant tendinous fibers off the tuberosity and debrided the bone down to bleeding bone. Using a spinal needle for localization, I placed 2 Mytec Healix 4.5 mm anchors for the medial row. For horizontal mattress sutures then passed in a retrograde fashion. These excellently reduced the rotator cuff down to its footprint. The tendon quality was excellent without any pullout nor lamination. These 4 sutures were then tied using standard arthroscopic knot tying techniques. I then incorporated 1 suture limb from each knot into a lateral row anchor. This Mitek 5.5 mm lateral row anchor was placed using standard technique. Each suture limb was tightened independently before fully seating the anchor which appropriately tensioned the sutures. This was then repeated for a second lateral row. This construct reduced the rotator cuff anatomically against the footprint. It was tested the range of motion noted to be stable. A 5.0 mm jenn was then inserted from the posterior portal. The anterolateral corner of the acromion was then resected in plane with the posterior slope of the acromion. The scope equipment was removed from the shoulder. Excess fluid was evacuated. The portal sites were closed with 3-0 Monocryl. The wounds were dressed with Steri-Strips, 4 x 4's, ABDs, Medipore tape. A sling was applied. The patient tolerated the procedure well and was returned to the PACU in a stable condition suffering no known complication.
== END 2019-11-06 15:41 | disposition home or self-care (01) ==
PROVIDERS: PCP Internal Medicine; Visit Provider Student in an Organized Health Care Education/Training Program
PROC: (CPT 29827; principal; 2019-11-06 07:45)
DX: M75.122 Complete rotator cuff tear or rupture of left shoulder, not specified as traumatic (principal); M75.81 Other shoulder lesions, right shoulder; G89.18 Other acute postprocedural pain; E11.9 Type 2 diabetes mellitus without complications; E03.9 Hypothyroidism, unspecified; I10 Essential (primary) hypertension
CPT/HCPCS: 23430; 29823; 29826; 76942; J0171; J0690; J1100; J2370; J2405; L3670

== ENCOUNTER → 2019-11-18 10:14 | Outpatient (BNVA) | payer MEDICARE, BC, SELFPAY | PROVIDERS: PCP Internal Medicine; Referring Provider Internal Medicine; Visit Provider Student in an Organized Health Care Education/Training Program | DX: Z47.89 Encounter for other orthopedic aftercare (principal) ==

== ENCOUNTER → 2019-12-16 15:14 | Outpatient (BNVA) | payer MEDICARE, BC, SELFPAY | PROVIDERS: PCP Internal Medicine; Referring Provider Internal Medicine; Visit Provider Student in an Organized Health Care Education/Training Program | DX: Z47.89 Encounter for other orthopedic aftercare (principal); M25.512 Pain in left shoulder ==

== ENCOUNTER 2020-02-24 10:16 | Outpatient (REF) | payer MEDICARE, BC, SELFPAY ==
[2020-02-24 21:30] LABS: Anion Gap 9.4 mmol/L (3-11); BUN 38 mg/dL (7-18); CO2 23.6 mmol/L (21.0-32.0); CREATININE 1.55 mg/dL (0.70-1.30); Calcium 9.2 mg/dL (8.5-10.1); Chloride 105 mmol/L (98-107); Estimated GFR 43.25 (mL/min/1.73m2); Glucose 133 mg/dL (74-106); Potassium 4.4 mmol/L (3.5-5.1); Sodium 138 mmol/L (136-145); TSH 1.78 uIU/mL (0.36-3.74)
[2020-02-24 21:31] LABS: Hemoglobin A1C 5.9 % (3.8-5.6)
== END 2020-02-24 10:36 ==
LOC: NCHCN 10:16
PROVIDERS: PCP Internal Medicine; Visit Provider Internal Medicine
DX: I10 Essential (primary) hypertension (principal); E11.9 Type 2 diabetes mellitus without complications; H81.399 Other peripheral vertigo, unspecified ear; E03.9 Hypothyroidism, unspecified; F90.0 Attention-deficit hyperactivity disorder, predominantly inattentive type
CPT/HCPCS: 80048; 83036; 84443

== ENCOUNTER 2020-08-12 13:21 | Emergency (ER) | payer MEDICARE, BC, SELFPAY ==
--- NOTE | 2020-08-12 13:26 | ED.GENADUL_ITS ---
Discharge Plan Disposition Patient Disposition: HOME Condition: Stable Discharge Details Clinical Impression: Left knee pain Primary Care Provider: Brady Brown ED Provider: Roz Alvarado Home Meds and New Rx's Prescriptions: Continued Lactobacillus acidophilus 1 EACH capsule 1 ea PO DAILY RF: 0 acyclovir 400 MG tablet 400 mg PO DAILY RF: 0 simvastatin 40 MG tablet 40 mg PO DAILY RF: 0 tamsulosin 0.4 MG capsule 0.8 mg PO DAILY RF: 0 levothyroxine 50 MCG tablet 50 mcg PO DAILY RF: 0 omeprazole 20 MG capsule,delayed release(DR/EC) 20 mg PO .MO/WE/FR RF: 0 lisinopril 40 MG tablet 40 mg PO DAILY RF: 0 polyethylene glycol 3350 17 gram/dose Powder 17 g PO DAILY RF: 0 acetaminophen 500 mg tablet 1,000 mg PO Q8H PRN (Reason: pain) Qty: 90 RF: 3 ibuprofen 600 mg tablet 600 mg PO TID PRNQty: 90 RF: 3 methylphenidate HCl [Concerta] 36 mg tablet extended release 24hr 36 mg PO DAILY Qty: 30 RF: 0 Discharge Instructions Instructions: Knee Pain (ED) Additional Instructions: Rest, ice, and elevate the affected area as much as possible. Use your crutches or a cane when ambulating for support. Take Tylenol as needed and directed for pain. Take the oxycodone for pain not relieved with Tylenol. Start your physical therapy as scheduled next week. Follow-up with your scheduled appointment with Dr. Eng later this month to discuss your knee pain and whether continued physical therapy, cortisone injections or an MRI of your knee is indicated. Return immediately to the emergency department if you develop any worsening or new concerning symptoms. Discharge Data Discharge Physician: Roz Alvarado Medical Decision Making 80-year-old male presents with left knee pain for the past 3 weeks, worse with ambulation and weightbearing and better with rest. Patient has tenderness to palpation of lateral joint line as well as pain with flexion. No ligamentous instability. Knee appears normal to inspection without evidence of cellulitis, trauma or rash. History and presentation not consistent with gout, cellulitis, DVT. Suspect most likely osteoarthritis versus strain/sprain; also consider Manjarrez's cyst. Patient and expressed that they would like an x-ray. An x-ray was done which was negative for any acute findings. Discussed that symptoms could be associated with strain versus strain and to plan for starting physical therapy next week and follow-up with orthopedic for further evaluation. He has an appointment with Dr. Eng later this month. Advised to speak to him about continued evaluation of his knee and consideration of cortisone injections or MRI if symptoms persist or worsen. Patient is instructed on the importance of RICE. Usual and customary return precautions given prior to discharge. Medical Records Medical records reviewed: Yes I reviewed the patient's medical records. Imaging Data Radiologic Study: Radiologist's impression: XR KNEE LT 3V AP,LAT,STEFAN CLINICAL HISTORY: L knee pain, r/o acute disease. TECHNIQUE: 2D digital imaging was performed. COMPARISON: No exams were available for comparison FINDINGS: BONES: No acute fracture is present. No bony destructive lesion is seen. JOINTS: The knee is normally aligned. No joint effusion is seen. SOFT TISSUE: Atherosclerosis. IMPRESSION: No acute abnormality. HPI General Mode of arrival: wheelchair . Date/Time Provider Initiated Documentation: 08/12/20 13:26 . Limitations to Documentation: no limitations . Information obtained by: patient . HPI Narrative: Patient is an 80-year-old male who presents with left knee pain over the past 3 weeks, worse with weightbearing and walking. Patient states he may have twisted his knee while walking outside but denies any known significant injury. Patient states he saw his primary care doctor last week for this complaint and was referred for physical therapy which starts next week. He has been taking Tylenol for pain with some relief. He states he cannot take ibuprofen due to history of chronic kidney disease. He states he also has a history of gout but states the pain with that is usually constant which is different from his pain currently as it is relieved with rest and Tylenol and worse with ambulation and weightbearing. He denies any fever, redness, swelling, calf pain. Related Data Home Medications Medication Instructions Recorded Confirmed acyclovir 400 mg PO DAILY 03/07/13 08/12/20 levothyroxine 50 mcg PO DAILY 03/07/13 08/12/20 lisinopril 40 mg PO DAILY 03/07/13 08/12/20 omeprazole 20 mg PO .MO/WE/FR 03/07/13 08/12/20 simvastatin 40 mg PO DAILY 03/07/13 08/12/20 tamsulosin 0.8 mg PO DAILY 03/07/13 08/12/20 Lactobacillus acidophilus 1 ea PO DAILY 11/30/15 08/12/20 polyethylene glycol 3350 17 g PO DAILY 11/01/19 08/12/20 acetaminophen 1,000 mg PO Q8H PRN #90 tab 11/06/19 08/12/20 ibuprofen 600 mg PO TID PRN #90 tab 11/06/19 08/12/20 methylphenidate HCl [Concerta] 36 mg PO DAILY #30 tab 11/06/19 08/12/20 Previous Rx's Medication Instructions Recorded acetaminophen 1,000 mg PO Q8H PRN #90 tab 11/06/19 ibuprofen 600 mg PO TID PRN #90 tab 11/06/19 methylphenidate HCl [Concerta] 36 mg PO DAILY #30 tab 11/06/19 Allergies Allergy/AdvReac Type Severity Reaction Status Date / Time tolmetin Allergy Unknown Unverified 08/12/20 13:37 General MICHAEL: 4 Review of Systems All systems reviewed & are unremarkable except as noted in HPI and below Constitutional Constitutional: Reports as per HPI, Denies chills and Denies fever(s) Eyes Eyes: Denies blurry vision ENT Ears, Nose, Mouth, and Throat: Denies dizziness, Denies sore throat and Denies throat swelling Cardiovascular Cardiovascular: Denies chest pain and Denies dyspnea Respiratory Respiratory: Denies cough and Denies dyspnea Gastrointestinal Gastrointestinal: Denies abdominal pain, Denies diarrhea and Denies vomiting Genitourinary Genitourinary: Denies hematuria and Denies dysuria Musculoskeletal Musculoskeletal: Denies back pain and Denies numbness Integumentary/Breasts Skin/Breast: Denies lesions and Denies rash Neurologic Neurologic: Denies dizziness, Denies localized weakness and Denies numbness Allergic/Immunologic Allergic/Immunologic: Denies throat swelling [facility] Medical History (Updated 08/12/20 @ 15:36 by Roz Alvarado DO) ADD (attention deficit disorder) Allergic rhinitis BPH (benign prostatic hyperplasia) Chronic kidney disease (CKD) Diabetes GERD (gastroesophageal reflux disease) Gout Hyperlipidemia Hypertension Hypothyroid Recurrent herpes simplex Surgical History (Updated 11/18/19 @ 17:17 by Gladys Hameed) Cholecystectomy Gal stones only, still has gal bladder. History of cystoscopy History of repair of right rotator cuff Status post left rotator cuff repair (11/06/19) Social History Smoking/Tobacco Use Status: Former Tobacco Use Smoking risk assessment performed?: Yes Alcohol Intake: never Drug use: Never Current gender identity: male Do you feel safe at home: Yes Do you feel safe in your relationship?: Yes Exam Const General: cooperative, healthy appearing and no acute distress HENMT Head: normal to inspection Mouth: oral mucosae normal Eyes General: appearance normal, both eyes and all related structures Neck Neck: normal visual inspection Resp Effort & Inspection: normal respiratory effort and able to speak in complete sentences Cardio Rate: regular rate Skin General skin exam: no rashes or lesions noted Neuro General: patient alert, patient awake and patient oriented x3 Motor: muscle tone normal throughout Extrem Left lower extremity: hip/thigh Details: normal ROM; no tenderness and no deformity, knee Details: tenderness Location: of the lateral joint line, abnormal ROM Details: pain with active ROM Details: with flexion and pain with passive ROM Details: with flexion and knee ligament exam normal Details: anterior drawer test normal, posterior drawer test normal, valgus stress test normal and varus stress test normal; no ecchymosis, no crepitus, no deformity and no unusual warmth, lower leg Details: normal to inspection; no tenderness and no localized swelling, ankle Details: normal to inspection and normal ROM; no tenderness and no swelling and foot Details: normal capillary refill, normal to inspection, toes with normal ROM and vascular exam Details: dorsalis pedis pulse present and posterior tibial pulse present; no tenderness, no edema, no abrasions and no ecchymosis Psych Appearance: grossly normal Affect: normal affect
[2020-08-12 13:32] VITALS: BP 173/84; PULSE 72; RESP 16; TEMP 36.7; O2SAT 98
--- NOTE | 2020-08-12 14:15 | DI.RAD_ITS ---
EXAM: XR KNEE LT 3V AP,LAT,STEFAN CLINICAL HISTORY: L knee pain, r/o acute disease. TECHNIQUE: 2D digital imaging was performed. COMPARISON: No exams were available for comparison FINDINGS: BONES: No acute fracture is present. No bony destructive lesion is seen. JOINTS: The knee is normally aligned. No joint effusion is seen. SOFT TISSUE: Atherosclerosis. IMPRESSION: No acute abnormality. DATA REPOSITORY: RADIATION DOSE DELIVERED:
== END 2020-08-12 15:56 | disposition home or self-care (01) ==
PROVIDERS: Emergency Provider Physician Assistant; PCP Internal Medicine
DX: M25.562 Pain in left knee (principal); N18.9 Chronic kidney disease, unspecified; I12.9 Hypertensive chronic kidney disease with stage 1 through stage 4 chronic kidney disease, or unspecified chronic kidney disease; E11.22 Type 2 diabetes mellitus with diabetic chronic kidney disease
CPT/HCPCS: 73562; 99283; 99284

== ENCOUNTER 2020-09-18 13:32 | Outpatient (CLI) | payer MEDICARE, BC, SELFPAY ==
[2020-09-20 19:20] LABS: COVID-19 RT-PCR Result NEGATIVE (Negative)
== END 2020-09-18 13:52 ==
PROVIDERS: PCP Internal Medicine; Visit Provider Internal Medicine
DX: J06.9 Acute upper respiratory infection, unspecified (principal)
CPT/HCPCS: U0003

== ENCOUNTER 2021-02-26 10:30 | Outpatient (REF) | payer MEDICARE, BC, SELFPAY ==
[2021-02-26 13:32] LABS: BUN 38 mg/dL (7-18); CREATININE 1.9 mg/dL (0.70-1.30); Calcium 9.1 mg/dL (8.5-10.1); Chloride 108 mmol/L (98-107); Estimated GFR 34.11 (mL/min/1.73m2); Glucose 126 mg/dL (74-106); Potassium 4.8 mmol/L (3.5-5.1); Sodium 141 mmol/L (136-145)
[2021-02-26 13:55] LABS: Hemoglobin A1C 5.8 % (<5.7)
== END 2021-02-26 10:31 | disposition home or self-care (01) ==
LOC: NCHCN 10:30
PROVIDERS: PCP Internal Medicine; Visit Provider Internal Medicine
DX: E11.9 Type 2 diabetes mellitus without complications (principal); I10 Essential (primary) hypertension; E03.9 Hypothyroidism, unspecified
CPT/HCPCS: 80048; 83036; 84443

== ENCOUNTER 2021-04-02 12:42 | Emergency (ER) | payer MEDICARE, BC, SELFPAY ==
[2021-04-02 12:52] VITALS: BP 162/102; PULSE 84; TEMP 37.2; O2SAT 98
--- NOTE | 2021-04-02 13:15 | DI.RAD_ITS ---
Exam(s) XR WRIST RT COMPLETE EXAM: XR WRIST RT COMPLETE CLINICAL HISTORY: pain/swelling. TECHNIQUE: 2D digital imaging was performed. COMPARISON: No exams were available for comparison FINDINGS: BONES: No acute fracture is present. There are severe degenerative changes at the 1st carpal metacar pal joint. There are subchondral cysts at the base of the 1st metacarpal. Degenerative changes are also noted at the scaphoid trapezium joint. JOINTS: There is a question of mild widening of the scapholunate distance. There is no dorsal tilt o f the lunate. SOFT TISSUE: Diffuse soft tissue swelling. No foreign body. IMPRESSION: Soft tissue swelling and degenerative changes no evidence of fracture. DATA REPOSITORY: RADIATION DOSE DELIVERED:
--- NOTE | 2021-04-02 13:15 | DI.US_ITS ---
Exam(s) US UPPER EXTREMITY VENOUS RT EXAM: US UPPER EXTREMITY VENOUS RT CLINICAL HISTORY: pain/swelling. TECHNIQUE: Ultrasound examination of the right upper extremity venous system(s) is performed using g rayscale, color-flow, and spectral Doppler analysis. COMPARISON: No exams were available for comparison FINDINGS: The right internal jugular, axillary, subclavian, cephalic, basilic, brachial, radial, and ulnar vein s are patent without evidence of thrombosis. Redness and swelling is noted. Superficial varicositie s or superficial thrombosis. Hand and wrist edema are noted. IMPRESSION: Hand and wrist edema. No DVT. DATA REPOSITORY:
--- NOTE | 2021-04-02 13:41 | W.ED.GENAD ---
Discharge Plan Disposition Patient Disposition: HOME Condition: Stable Discharge Details Clinical Impression: Right wrist pain Primary Care Provider: Brady Brown ED Provider: Shade Lara Home Meds and New Rx's Prescriptions: New prednisone 20 mg tablet 40 mg PO DAILY 5 Days Qty: 10 RF: 0 indomethacin 25 mg capsule 25 mg PO TID 5 Days Qty: 15 RF: 0 Continued Lactobacillus acidophilus 1 EACH capsule 1 ea PO DAILY RF: 0 acyclovir 400 MG tablet 400 mg PO DAILY RF: 0 simvastatin 40 MG tablet 40 mg PO DAILY RF: 0 tamsulosin 0.4 MG capsule 0.8 mg PO DAILY RF: 0 levothyroxine 50 MCG tablet 50 mcg PO DAILY RF: 0 omeprazole 20 MG capsule,delayed release(DR/EC) 20 mg PO .MO// RF: 0 lisinopril 40 MG tablet 40 mg PO DAILY RF: 0 polyethylene glycol 3350 17 gram/dose Powder 17 g PO DAILY RF: 0 acetaminophen 500 mg tablet 1,000 mg PO Q8H PRN (Reason: pain) Qty: 90 RF: 3 ibuprofen 600 mg tablet 600 mg PO TID PRNQty: 90 RF: 3 methylphenidate HCl [Concerta] 36 mg tablet extended release 24hr 36 mg PO DAILY Qty: 30 RF: 0 Discharge Instructions Instructions: Gout (ED), Arthritis (ED) Additional Instructions: Work-up in the ER today is most consistent with a gouty arthritis presentation. No clear signs of infection. Indomethacin and prednisone as directed. Rest, elevate, cool and/or warm compresses every 2 hours for 20 minutes. Please watch for new or worsening symptoms and return to the ER for any concerns. I have personally discussed your evaluation today with Dr. Eng, who is agreeable with this therapy, and is scheduled to see you in his office the second week of April, please follow-up as already scheduled. Discharge Data Discharge Date/Time-TO BE ENTERED AT DEPARTURE: 04/02/21 16:25 Medical Decision Making 80-year-old gentleman, [id number], presents for 5-week history of right wrist pain intermittent in nature, worse in the morning. He does have a history of gout. Clinically does not appear to be septic joint, tenosynovitis, no obvious deformity or trauma. I believe more likely this is a gouty arthritis exacerbation. Given his overall presentation however I would like to obtain IV access, CBC, CMP, uric acid, CRP, ESR, x-ray and ultrasound. Patient is comfortable this plan Laboratory values reveal a normal white blood cell count of 7.43, ESR elevated at 62, creatinine 1.8 with a GFR of 36.30, CRP 2.67. Ultrasound read by radiology as hand and wrist edema, no DVT X-ray read by radiology as soft tissue swelling and degenerative changes, no evidence of fracture. I was able to discuss the case with Dr. Eng who the patient is seeing the first week of April. We discussed the patient's work-up thus far and my plan was to initiate a short-term dose of indomethacin, he recommended that we could also initiate short-term steroids. I discussed the work-up and my consultation with orthopedics with the patient and family, will initiate prescription for indomethacin and steroids. No clear indication for antibiotics at this time. Patient is hesitant to fully immobilize his wrist so instead he will use an Marcial wrap to help with the swelling and limited range of motion but will still continue to use his hand and wrist just in a lesser fashion. He was given standard discharge and return precautions. Medical Records Medical records reviewed: Yes I reviewed the patient's medical records. Imaging Data Radiologic Study: Attestation: I personally reviewed and interpreted this imaging study as follows: Imaging: X-Ray Radiologist's impression: XR WRIST RT COMPLETE EXAM: XR WRIST RT COMPLETE CLINICAL HISTORY: pain/swelling. TECHNIQUE: 2D digital imaging was performed. COMPARISON: No exams were available for comparison FINDINGS: BONES: No acute fracture is present. There are severe degenerative changes at the 1st carpal metacarpal joint. There are subchondral cysts at the base of the 1st metacarpal. Degenerative changes are also noted at the scaphoid trapezium joint. JOINTS: There is a question of mild widening of the scapholunate distance. There is no dorsal tilt of the lunate. SOFT TISSUE: Diffuse soft tissue swelling. No foreign body. IMPRESSION: Soft tissue swelling and degenerative changes no evidence of fracture. Radiologic Study #2: Attestation: I personally reviewed and interpreted this imaging study as follows: Imaging: Ultrasound Radiologist's impression: Exam(s) US UPPER EXTREMITY VENOUS RT EXAM: US UPPER EXTREMITY VENOUS RT CLINICAL HISTORY: pain/swelling. TECHNIQUE: Ultrasound examination of the right upper extremity venous system(s) is performed using grayscale, color-flow, and spectral Doppler analysis. COMPARISON: No exams were available for comparison FINDINGS: The right internal jugular, axillary, subclavian, cephalic, basilic, brachial, radial, and ulnar veins are patent without evidence of thrombosis. Redness and swelling is noted. Superficial varicosities or superficial thrombosis. Hand and wrist edema are noted. IMPRESSION: Hand and wrist edema. No DVT. Lab Data Lab results reviewed: Yes I reviewed the patient's lab results. Labs: Laboratory Tests Range/Units 04/02/21 04/02/21 04/02/21 13:35 13:35 13:35 WBC (4.4-10.8) 10^3/uL 7.43 RBC (4.36-5.78) 10^6/uL 4.81 Hgb (13.5-17.5) g/dL 14.8 Hct (40.0-50.0) % 44.8 MCV (80-95) fL 93.1 MCH (27.0-33.0) pg 30.8 MCHC (32.0-36.0) % 33.0 RDW (11.8-14.1) % 12.2 Plt Count (130-400) 10^3/uL 244 MPV (8.0-11.0) fL 8.4 Immature Gran % 0.3 Neutrophils % 69.4 Lymphocytes % 19.2 Monocytes % 9.2 Eosinophils % 1.2 Basophils % 0.7 Nucleated RBC % % 0 Absolute Neutrophils (1.2-6.7) 10^3/uL 5.16 Absolute Lymphocytes (1.2-3.4) 10^3/uL 1.43 Absolute Monocytes (0.1-0.8) 10^3/uL 0.68 Absolute Eosinophils (0.0-0.7) 10^3/uL 0.09 Absolute Basophils (0.0-0.2) 10^3/uL 0.05 ESR (0-20) mm/hr 62 H Sodium (136-145) mmol/L 139 Potassium (3.5-5.1) mmol/L 4.6 Chloride (98-107) mmol/L 105 Carbon Dioxide (21.0-32.0) mmol/L 23.5 Anion Gap (3-11) mmol/L 10.5 BUN (7-18) mg/dL 34 H Creatinine (0.70-1.30) mg/dL 1.8 H Estimated GFR/1.73 m2 (mL/min/1.73m2) 36.30 Glucose (74-106) mg/dL 113 H Uric Acid (3.5-7.2) mg/dL 8.8 H Calcium (8.5-10.1) mg/dL 9.5 Total Bilirubin (0.2-1.0) mg/dL 0.5 AST (15-37) U/L 11 L ALT (16-63) U/L 15 L Alkaline Phosphatase (46-116) U/L 127 H C-Reactive Protein (0.0-0.3) mg/dL 2.67 H Total Protein (6.4-8.2) g/dL 8.0 Albumin (3.4-5.0) g/dL 3.4 HPI General Mode of arrival: ambulatory. Date/Time Provider Initiated Documentation: 04/02/21 13:03. Limitations to Documentation: no limitations. Information obtained by: patient and family. HPI Narrative: This is an 80-year-old gentleman, [id number], past medical history that includes BPH, CKD, diabetes, GERD, hypertension, hypothyroidism, presenting for intermittent right wrist pain for approximately 5 weeks. He states that he was seen by his primary care provider and told him that it was arthritis. He is scheduled to be seen by orthopedics the first week of April. Patient states that he has had gout in both of his great toes in the past, no longer takes any prophylactic medication for gout. Patient denies any obvious trauma, fevers, numbness, tingling, weakness, skin rash, other joint pain or myalgias. Patient did wear an Marcial wrap for a couple of days and he states that the swelling and discomfort did decrease. He denies history of DVT, PE, chest pain or shortness of breath. Patient has not been taking any nuzp-pkw-ghbjtgf medication for his symptoms. He states that he stopped wearing the Marcial wrap over the past 24 hours and the swelling has returned. Related Data Home Medications Medication Instructions Recorded Confirmed acyclovir 400 mg PO DAILY 03/07/13 04/02/21 levothyroxine 50 mcg PO DAILY 03/07/13 04/02/21 lisinopril 40 mg PO DAILY 03/07/13 08/12/20 omeprazole 20 mg PO .MO/WE/FR 03/07/13 04/02/21 simvastatin 40 mg PO DAILY 03/07/13 04/02/21 tamsulosin 0.8 mg PO DAILY 03/07/13 04/02/21 Lactobacillus acidophilus 1 ea PO DAILY 11/30/15 08/12/20 polyethylene glycol 3350 17 g PO DAILY 11/01/19 04/02/21 acetaminophen 1,000 mg PO Q8H PRN #90 tab 11/06/19 04/02/21 ibuprofen 600 mg PO TID PRN #90 tab 11/06/19 04/02/21 methylphenidate HCl [Concerta] 36 mg PO DAILY #30 tab 11/06/19 04/02/21 indomethacin 25 mg PO TID 5 Days #15 cap 04/02/21 prednisone 40 mg PO DAILY 5 Days #10 tab 04/02/21 Previous Rx's Medication Instructions Recorded acetaminophen 1,000 mg PO Q8H PRN #90 tab 11/06/19 ibuprofen 600 mg PO TID PRN #90 tab 11/06/19 methylphenidate HCl [Concerta] 36 mg PO DAILY #30 tab 11/06/19 indomethacin 25 mg PO TID 5 Days #15 cap 04/02/21 prednisone 40 mg PO DAILY 5 Days #10 tab 04/02/21 Allergies Allergy/AdvReac Type Severity Reaction Status Date / Time tolmetin Allergy Unknown Unverified 04/02/21 12:58 General Stated Complaint: Cellulitis MICHAEL: 3 Review of Systems Constitutional Constitutional: Denies fever(s) and Denies weakness Cardiovascular Cardiovascular: Denies chest pain and Denies dyspnea Respiratory Respiratory: Denies cough and Denies dyspnea Musculoskeletal Musculoskeletal: Denies deformity, Reports arthralgias, Denies numbness and Reports stiffness Integumentary/Breasts Skin/Breast: Reports erythema Neurologic Neurologic: Denies numbness and Denies weakness [facility] Medical History ADD (attention deficit disorder) Allergic rhinitis BPH (benign prostatic hyperplasia) Chronic kidney disease (CKD) Diabetes GERD (gastroesophageal reflux disease) Gout Hyperlipidemia Hypertension Hypothyroid Recurrent herpes simplex Surgical History Cholecystectomy Gal stones only, still has gal bladder. History of cystoscopy History of repair of right rotator cuff Status post left rotator cuff repair (11/06/19) Social History Smoking/Tobacco Use Status: Former Tobacco Use Smoking risk assessment performed?: Yes Alcohol Intake: former Drug use: Never Substance use type: does not use Current gender identity: male Do you feel safe at home: Yes Do you feel safe in your relationship?: Yes Exam Const General: cooperative, healthy appearing, comfortable and no acute distress Orientation: alert and awake [facility] Head: normal to inspection, normocephalic and atraumatic Eyes General: appearance normal, both eyes and all related structures Conjunctivae: conjunctivae normal Neck Neck: normal visual inspection, trachea midline and supple Resp Effort & Inspection: normal respiratory effort and able to speak in complete sentences Auscultation: clear to auscultation bilaterally Cardio Rate: regular rate Rhythm: regular rhythm Skin General skin exam: no rashes or lesions noted Neuro General: patient alert, patient awake, moves all extremities and no focal motor deficits Cognition: normal cognition Speech: speech normal Gait: normal gait Motor: muscle tone normal throughout Sensory Exam: no sensory deficits noted Extrem General: full ROM and capillary refill normal Right upper extremity: full ROM, normal capillary refill, shoulder/upper arm Details: normal to inspection, axillary nerve sensory function normal and normal ROM; no tenderness and no swelling, elbow/forearm Details: normal to inspection, normal ROM and distal pulses intact; no tenderness and no swelling, wrist Details: tenderness, swelling, normal ROM, normal vascular exam and radial pulse present; no deformity and hand Details: abnormal to inspection, normal capillary refill, neuromotor exam normal, neurosensory exam normal, tendon exam normal and swelling Other: Right wrist with diffuse mild swelling and tenderness, full range of motion and normal radial pulse the pain does increase with range of motion of the wrist. Patient has mild swelling across the dorsum of the carpal region but no swelling down into the fingers. Full range of motion of the hand and fingers, normal capillary refill. The rest is with minimal erythema and warmth but there does not appear to be any lymphangitic streaking. Neuro, vascular, tendon intact Psych Appearance: grossly normal Mental Status: mental status grossly normal Course Vital Signs Vital signs: Vital Signs Temperature 37.2 C 04/02/21 12:52 Pulse 84 04/02/21 12:52 Blood Pressure 162/102 H 04/02/21 12:52 Pulse Oximetry 98 04/02/21 12:52 Temperature 37.2 C 04/02/21 12:52 Temperature Source Temporal Artery Scan 04/02/21 12:52 Pulse 84 04/02/21 12:52 Respiratory Effort Non-Labored 04/02/21 13:03 Blood Pressure 162/102 H 04/02/21 12:52 Blood Pressure Position Sitting 04/02/21 12:52 Pulse Oximetry 98 04/02/21 12:52 Oxygen Delivery Method Room Air 04/02/21 12:52 Oxygen Flow Rate 0 04/02/21 12:52 Pain Level 5 04/02/21 12:52
[2021-04-02 13:43] LABS: Abs Immature Grans 0.02 10^3/uL (0.0-0.06); Absolute Basophil Count 0.05 10^3/uL (0.0-0.2); Absolute Eosinophil Count 0.09 10^3/uL (0.0-0.7); Absolute Lymphocyte Count 1.43 10^3/uL (1.2-3.4); Absolute Monocyte Count 0.68 10^3/uL (0.1-0.8); Absolute Neutrophil Count 5.16 10^3/uL (1.2-6.7); Basophils % 0.7; Eosinophils % 1.2; HCT 44.8 % (40.0-50.0); HGB 14.8 g/dL (13.5-17.5); Immature Grans % 0.3; Lymphocytes % 19.2; MCH 30.8 pg (27.0-33.0); MCV 93.1 fL (80-95); MPV 8.4 fL (8.0-11.0); Monocytes % 9.2; Neutrophils % 69.4; Nucleated RBC 0 %; Platelet Count 244 10^3/uL (130-400); RBC 4.81 10^6/uL (4.36-5.78); RDW 12.2 % (11.8-14.1); WBC 7.43 10^3/uL (4.4-10.8)
[2021-04-02 13:53] LABS: ESR 62 mm/hr (0-20)
[2021-04-02 13:55] LABS: ALT 15 U/L (16-63); AST 11 U/L (15-37); Albumin 3.4 g/dL (3.4-5.0); Alkaline Phosphatase 127 U/L (46-116); Anion Gap 10.5 mmol/L (3-11); BUN 34 mg/dL (7-18); Bilirubin, Total 0.5 mg/dL (0.2-1.0); C-Reactive Protein 2.67 mg/dL (0.0-0.3); CO2 23.5 mmol/L (21.0-32.0); CREATININE 1.8 mg/dL (0.70-1.30); Calcium 9.5 mg/dL (8.5-10.1); Chloride 105 mmol/L (98-107); Glucose 113 mg/dL (74-106); Potassium 4.6 mmol/L (3.5-5.1); Sodium 139 mmol/L (136-145); Uric Acid 8.8 mg/dL (3.5-7.2)
[2021-04-02 16:23] VITALS: BP 182/97; PULSE 68; RESP 24; TEMP 36.5; O2SAT 97
== END 2021-04-02 16:25 | disposition home or self-care (01) ==
PROVIDERS: Emergency Provider Physician Assistant; PCP Internal Medicine
DX: M79.89 Other specified soft tissue disorders; M25.531 Pain in right wrist
CPT/HCPCS: 36415; 80053; 85652; 99284; 73110; 84550; 85025; 86140; 93971

== ENCOUNTER → 2021-04-16 08:16 | Outpatient (BNVA) | payer MEDICARE, BC, SELFPAY | PROVIDERS: PCP Internal Medicine; Referring Provider Internal Medicine; Visit Provider Student in an Organized Health Care Education/Training Program | DX: M25.531 Pain in right wrist (principal); M25.431 Effusion, right wrist; M77.8 Other enthesopathies, not elsewhere classified; M10.9 Gout, unspecified | CPT/HCPCS: 20610; J1040 ==

== ENCOUNTER 2021-04-16 18:59 | Outpatient (REF) | payer MEDICARE, BC, SELFPAY ==
[2021-04-16 14:03] LABS: Crystals (BF) No Crystals seen
== END 2021-04-16 19:00 | disposition home or self-care (01) ==
LOC: LBN 18:59
PROVIDERS: PCP Internal Medicine; Visit Provider Student in an Organized Health Care Education/Training Program
DX: M25.531 Pain in right wrist (principal)
CPT/HCPCS: 89060

== ENCOUNTER 2021-05-14 04:02 | Outpatient (CLI) | payer MEDICARE, BC, SELFPAY ==
--- NOTE | 2021-05-14 07:45 | DI.MRI_ITS ---
Exam(s) MR UPPER JOINT RT WO EXAM: MR UPPER JOINT RT WO CLINICAL HISTORY: right wrist pain,EFFUSION,M25.531,M25.431. TECHNIQUE: Multiplanar multisequence MRI was performed. COMPARISON: CR XR WRIST RT COMPLETE from 04/02/2021 CR XR WRIST RT COMPLETE from 04/02/2021 FINDINGS: MR examination of the wrist was performed according to the usual protocol. There is bony signal abnormality involving multiple carpal bones with particularly prominent subchond ral cysts present in the base of the 1st metacarpal. There is mild diffuse edema of the wrist. At the greater multangular 1st metacarpal joint, there is severe degenerative arthritis with cartilag e thinning, prominent subchondral cyst formation, very prominent marginal osteophytes of both bones, a joint effusion, and debris in the joint. There are lesser degrees degenerative change at the lesser multangular 2nd metacarpal joint and at th e remaining joints of the wrist, no gross bony destructive process identified. There is widening of the navicular lunate joint with heterogeneous signal in the scapholunate ligamen t consistent with full-thickness or subtotal tear. There is abnormal signal in the ulnar attachment of the TFCC consistent with a partial tear at this s ite. There is fluid in the space lateral to the TFCC which may also contain debris. No apparent dis ruption of the distal radioulnar ligaments. There is mild signal abnormality in the flex or and extensor tendons, particularly in the flexor tend on of the thumb and in the extensor carpi ulnaris tendon. There is possible de Quervain tenosynoviti s noted as well. The carpal tunnel shows mild edema and fluid, please correlate regarding possibility of carpal tunnel syndrome period IMPRESSION: Severe degenerative changes of the 1st metacarpal greater multangular joint as described above TFCC tear at the ulnar attachment. Probable torn scapholunate ligament. Possible carpal tunnel inflammation and deQuervain 9 tendinopathy, please correlate clinically. DATA REPOSITORY:
--- NOTE | 2021-05-14 12:19 | DI.VRAD_ITS ---
PROCEDURE INFORMATION: Exam: MR Right Upper Extremity Joint Without Contrast; Wrist Exam date and time: 05/14/2021 11:54 AM Age: 80 years old Clinical indication: Pain; Wrist; Right TECHNIQUE: Imaging protocol: MR of the Right upper extremity without contrast. Exam focused on the wrist. COMPARISON: US UPPER EXTREMITY VENOUS RT 04/02/2021 3:30 PM FINDINGS: Bones and cartilage: Patchy marrow edema in the carpal bones. Prominent cystic changes proximal 1st metacarpal. Cystic changes in the distal scaphoid. Joint spaces: Moderate to severe degenerative arthritis in the articulation between the scaphoid, trapezium, and trapezoid bone with high-grade chondromalacia. Severe degenerative arthritis in the right 1st CMC joint high-grade chondromalacia on both sides of the joint, small joint effusion with synovitis and debris, prominent cystic changes and cortical irregularity in the base of the 1st metacarpal and collateral ligamentous deformity suggesting partial tearing, especially of the radial collateral ligament. Small amount of fluid in the distal radioulnar joint and in the intercarpal spaces with mild synovitis. Scapholunate ligament: Heterogeneous appearance of the scapholunate ligament consistent with high-grade partial or full-thickness tearing. Lunotriquetral ligament: Unremarkable. No tear. Triangular fibrocartilage complex: Heterogeneous appearance of the ulnar attachment of the triangular fibrocartilage complex consistent with partial tearing. Flexor compartment tendons Edema and fluid in the carpal tunnel consistent with synovitis and tenosynovitis. Palmar bowing of the flexor retinaculum. Mild increased T2 signal and enlargement of the median nerve. Constellation of findings can be seen in carpal tunnel syndrome. Correlate with symptomatology. Fluid surrounds the flexor tendon of the thumb with mild thickening of the 1st flexor tendon consistent with tendinopathy and tenosynovitis. Extensor compartment tendons: Slight increased T2 signal in the extensor carpi ulnaris tendon consistent with mild tendinopathy. Small amount of fluid in all of the extensor compartments at the level of the distal radioulnar joint consistent with tenosynovitis. There is mild thickening and increased T2 signal of the 1st extensor compartment tendons consistent with de Quervain's tenosynovitis. Muscles: Diffuse edema in the muscles of the wrist and hand. Soft tissues: Diffuse subcutaneous edema. IMPRESSION: 1. Diffuse mild flexor and extensor tenosynovitis with findings that can be seen in carpal tunnel syndrome and de Quervain tendinopathy and tenosynovitis 2. Mild extensor carpi ulnaris tendinopathy 3. Tendinopathy and tenosynovitis 1st flexor tendon in the visualized thumb 4. At least partial tearing scapholunate ligament and ulnar attachment of the triangular fibrocartilage complex 4. 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 Mild synovitis distal radioulnar joint and intercarpal spaces. Dictated and Authenticated by: Margarita Ross MD. Ordering:NAN Powell MD
== END 2021-05-14 04:22 ==
PROVIDERS: PCP Internal Medicine; Visit Provider Student in an Organized Health Care Education/Training Program
DX: M25.531 Pain in right wrist (principal); M25.431 Effusion, right wrist; M18.11 Unilateral primary osteoarthritis of first carpometacarpal joint, right hand; S63.591A Other specified sprain of right wrist, initial encounter
CPT/HCPCS: 73221

== ENCOUNTER 2021-05-27 18:59 | Outpatient (REF) | payer MEDICARE, BC, SELFPAY ==
[2021-05-27 20:32] LABS: Anion Gap 10.3 mmol/L (3-11); BUN 34 mg/dL (7-18); CO2 23.7 mmol/L (21.0-32.0); CREATININE 1.6 mg/dL (0.70-1.30); Calcium 9.2 mg/dL (8.5-10.1); Chloride 108 mmol/L (98-107); Estimated GFR 41.59 (mL/min/1.73m2); Glucose 123 mg/dL (74-106); Potassium 4.3 mmol/L (3.5-5.1); Sodium 142 mmol/L (136-145); Uric Acid 7.5 mg/dL (3.5-7.2)
[2021-05-27 20:40] LABS: Hemoglobin A1C 6.2 % (<5.7)
== END 2021-05-27 19:00 | disposition home or self-care (01) ==
LOC: NCHCN 18:59
PROVIDERS: PCP Internal Medicine; Visit Provider Internal Medicine
DX: E11.9 Type 2 diabetes mellitus without complications (principal); M10.9 Gout, unspecified; I10 Essential (primary) hypertension
CPT/HCPCS: 80048; 83036; 84550

== ENCOUNTER 2021-08-23 13:58 | Outpatient (REF) | payer MEDICARE, BC, SELFPAY ==
[2021-08-23 16:15] LABS: HCT 43.7 % (40.0-50.0); HGB 14.2 g/dL (13.5-17.5); MCH 30.6 pg (27.0-33.0); MCHC 32.5 % (32.0-36.0); MCV 94.2 fL (80-95); MPV 9.5 fL (8.0-11.0); Platelet Count 228 10^3/uL (130-400); RBC 4.64 10^6/uL (4.36-5.78); RDW 13.1 % (11.8-14.1); RDW-SD 44.8 fL; WBC 7.92 10^3/uL (4.4-10.8)
[2021-08-23 16:19] LABS: PROTEIN 97.8 mg/dL
[2021-08-23 16:21] LABS: COMMENT (LAB VIEW ONLY) 41.39 mg/dL; Prot/Crea Ur Ratio 2.36
[2021-08-23 17:48] LABS: ALT 18 U/L (16-63); AST 10 U/L (15-37); Albumin 3.6 g/dL (3.4-5.0); Alkaline Phosphatase 140 U/L (46-116); Anion Gap 12.4 mmol/L (3-11); BUN 34 mg/dL (7-18); Bilirubin, Total 0.3 mg/dL (0.2-1.0); CO2 23.6 mmol/L (21.0-32.0); CREATININE 1.7 mg/dL (0.70-1.30); Calcium 9.1 mg/dL (8.5-10.1); Chloride 105 mmol/L (98-107); Estimated GFR 38.68 (mL/min/1.73m2); Glucose 135 mg/dL (74-106); Potassium 4.3 mmol/L (3.5-5.1); Sodium 141 mmol/L (136-145); TSH 1.84 uIU/mL (0.36-3.74); Total Protein 6.9 g/dL (6.4-8.2)
[2021-08-23 18:05] LABS: Uric Acid 5.6 mg/dL (3.5-7.2)
[2021-08-24 17:44] LABS: PSA, Screening 5.1 ng/mL (0.0-6.5)
[2021-08-25 15:28] LABS: Albumin 54.5 % (55.8-66.1); Comment (See Note); Total Protein 6.9 g/dL (6.3-8.2)
[2021-08-25 16:44] LABS: Immunotyping, Serum (See Note)
== END 2021-08-23 13:59 | disposition home or self-care (01) ==
LOC: NCHCN 13:58
PROVIDERS: PCP Internal Medicine; Visit Provider Internal Medicine
DX: E11.9 Type 2 diabetes mellitus without complications (principal); I10 Essential (primary) hypertension; R63.4 Abnormal weight loss; N40.1 Benign prostatic hyperplasia with lower urinary tract symptoms; Z12.5 Encounter for screening for malignant neoplasm of prostate; M10.9 Gout, unspecified; N18.30 Chronic kidney disease, stage 3 unspecified
CPT/HCPCS: 80053; 84153; 85027; 82565; 84156; 84165; 84443; 84550; 86320

== ENCOUNTER 2021-09-01 20:41 | Outpatient (REF) | payer MEDICARE, BC, SELFPAY ==
[2021-09-01 21:02] LABS: HCT 45.8 % (40.0-50.0); HGB 14.5 g/dL (13.5-17.5); MCH 30.7 pg (27.0-33.0); MCHC 31.7 % (32.0-36.0); MPV 9.2 fL (8.0-11.0); Platelet Count 249 10^3/uL (130-400); RBC 4.72 10^6/uL (4.36-5.78); RDW 13.1 % (11.8-14.1); RDW-SD 47.3 fL; WBC 10.88 10^3/uL (4.4-10.8)
[2021-09-01 21:11] LABS: LDH 174 U/L (85-227)
[2021-09-06 09:39] LABS: IgA 268 mg/dL (85-499); IgG 1124 mg/dL (610-1,616); IgM 53 mg/dL (35-242)
[2021-09-06 12:48] LABS: Beta-2-Microglobulin 3.61 mcg/mL
== END 2021-09-01 20:42 | disposition home or self-care (01) ==
LOC: NCHCN 20:41
PROVIDERS: PCP Internal Medicine; Visit Provider Internal Medicine
DX: C90.00 Multiple myeloma not having achieved remission (principal); R63.4 Abnormal weight loss; D47.2 Monoclonal gammopathy
CPT/HCPCS: 82784; 85027; 82232; 83615

== ENCOUNTER 2021-09-06 01:20 | Outpatient (CLI) | payer MEDICARE, BC, SELFPAY ==
--- NOTE | 2021-09-06 09:50 | DI.RAD_ITS ---
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 TECHNIQUE: 2D digital imaging was performed. COMPARISON: No exams were available for comparison FINDINGS: Skull: Single lateral view of the skull reveals an 8 x 7 millimeter lesion in the occipital temporal region, possibly a lytic skull lesion. Recommend additional skull views. Cervical spine: Chronic disc space narrowing at C6-7 level. No fracture or listhesis. No ominous os seous lesions. Thoracic spine: No compression fractures. No listhesis. No scoliosis. No abnormal widening of the paraspinal lines. No significant osseous lesions Lumbosacral spine: There is no evidence of fracture nor listhesis. No scoliosis. Mild disc space na rrowing. Chest-ribs: Heart size normal. Lungs are clear. No pleural effusions. No obvious rib fractures nor rib lesions. Pelvis: No fractures. No lytic osseous lesions evident. Humeri: There is evidence of previous rotator cuff surgery in the right shoulder with a single fasten er at the level of the greater tuberosity. There are no fractures. No significant osseous lesions i n either humerus. Femurs: No fractures nor lytic osseous lesions. No obvious degenerative changes in either hip. IMPRESSION: Single focal 8 x 7 millimeter lucency in the skull seen on the lateral view, possibly significant giv en the history here. Recommend additional skull views. No other significant focal bone lesions evident. DATA REPOSITORY: RADIATION DOSE DELIVERED:
== END 2021-09-06 01:40 ==
PROVIDERS: PCP Internal Medicine; Visit Provider Internal Medicine
DX: C90.00 Multiple myeloma not having achieved remission (principal); R93.0 Abnormal findings on diagnostic imaging of skull and head, not elsewhere classified
CPT/HCPCS: 77075

== ENCOUNTER 2021-09-07 12:11 | Outpatient (CLI) | payer MEDICARE, BC, SELFPAY ==
--- NOTE | 2021-09-07 | DI.RAD_ITS ---
Exam(s) XR SKULL 2V EXAM: XR SKULL 2V CLINICAL HISTORY: MULTIPLE MYELOMA, C90.00, ADDITIONAL IMAGES RECOMMENDED BY RADIOLOGIST. TECHNIQUE: 2D digital imaging was performed. Six images were obtained. COMPARISON: CR XR BONE SURVEY from 09/06/2021 FINDINGS: There is again seen in 8 mm lucency on the lateral view which appears to lie in the occipital bone. No other lytic lesions are seen. FINDINGS: Solitary lytic lesion in the occipital bone. 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 DATA REPOSITORY: RADIATION DOSE DELIVERED:
== END 2021-09-07 12:31 ==
PROVIDERS: PCP Internal Medicine; Visit Provider Internal Medicine
DX: C90.00 Multiple myeloma not having achieved remission (principal); R93.0 Abnormal findings on diagnostic imaging of skull and head, not elsewhere classified
CPT/HCPCS: 70250

== ENCOUNTER 2021-09-08 14:44 | Outpatient (REF) | payer MEDICARE, BC, SELFPAY ==
[2021-09-09 15:26] LABS: Albumin, Urine % 84.1 %; Globulins, Urine % 15.9 %; Immunotyping, Urine (See Note); Total Protein Urine 121 mg/dL (See Note); Total Protein, Urine 24hrs 1936 mg/24hrs (<150); Urine Volume 1600 mL
== END 2021-09-08 14:45 | disposition home or self-care (01) ==
LOC: NCHCN 14:44
PROVIDERS: PCP Internal Medicine; Visit Provider Internal Medicine
DX: C90.00 Multiple myeloma not having achieved remission (principal)
CPT/HCPCS: 84156; 84166; 86335

== ENCOUNTER 2022-02-21 10:12 | Outpatient (REF) | payer MEDICARE, BC, SELFPAY ==
[2022-02-21 15:01] LABS: Abs Immature Grans 0.02 10^3/uL (0.0-0.06); Absolute Basophil Count 0.04 10^3/uL (0.0-0.2); Absolute Eosinophil Count 0.19 10^3/uL (0.0-0.7); Absolute Lymphocyte Count 1.69 10^3/uL (1.2-3.4); Absolute Monocyte Count 0.51 10^3/uL (0.1-0.8); Absolute Neutrophil Count 3.37 10^3/uL (1.2-6.7); Basophils % 0.7; Eosinophils % 3.3; HCT 44.4 % (40.0-50.0); HGB 14.7 g/dL (13.5-17.5); Immature Grans % 0.3; MCH 31.9 pg (27.0-33.0); MCHC 33.1 % (32.0-36.0); MCV 96 fL (80-95); MPV 9.5 fL (8.0-11.0); Monocytes % 8.8; Neutrophils % 57.9; Platelet Count 189 10^3/uL (130-400); RBC 4.61 10^6/uL (4.36-5.78); RDW 13.2 % (11.8-14.1); RDW-SD 46.3 fL; WBC 5.82 10^3/uL (4.4-10.8)
[2022-02-21 15:29] LABS: ALT 17 U/L (16-63); AST 13 U/L (15-37); Albumin 3.7 g/dL (3.4-5.0); Alkaline Phosphatase 140 U/L (46-116); Anion Gap 12.2 mmol/L (3-11); BUN 50 mg/dL (7-18); Bilirubin, Total 0.4 mg/dL (0.2-1.0); CO2 19.8 mmol/L (21.0-32.0); CREATININE 2.1 mg/dL (0.70-1.30); Calcium 8.7 mg/dL (8.5-10.1); Chloride 107 mmol/L (98-107); Estimated GFR 30.31 (mL/min/1.73m2); Glucose 126 mg/dL (74-106); Potassium 4.4 mmol/L (3.5-5.1); Sodium 139 mmol/L (136-145)
[2022-02-21 15:54] LABS: COMMENT (LAB VIEW ONLY) 79.46 mg/dL; PROTEIN 95.4 mg/dL
[2022-02-22 13:31] LABS: Albumin 59.2 % (55.8-66.1); Comment (See Note); Total Protein 6.7 g/dL (6.3-8.2)
== END 2022-02-21 10:13 | disposition home or self-care (01) ==
LOC: NCHCN 10:12
PROVIDERS: PCP Internal Medicine; Visit Provider Internal Medicine
DX: E11.9 Type 2 diabetes mellitus without complications (principal); I10 Essential (primary) hypertension; D47.2 Monoclonal gammopathy; N18.30 Chronic kidney disease, stage 3 unspecified; R80.9 Proteinuria, unspecified
CPT/HCPCS: 80053; 82565; 84156; 84165; 85025

== ENCOUNTER 2022-09-20 16:22 | Outpatient (REF) | payer MEDICARE, BC, SELFPAY ==
[2022-09-20 20:52] LABS: Abs Immature Grans 0.02 10^3/uL (0.0-0.06); Absolute Basophil Count 0.06 10^3/uL (0.0-0.2); Absolute Eosinophil Count 0.15 10^3/uL (0.0-0.7); Absolute Lymphocyte Count 1.84 10^3/uL (1.2-3.4); Absolute Monocyte Count 0.52 10^3/uL (0.1-0.8); Absolute Neutrophil Count 4.21 10^3/uL (1.2-6.7); Basophils % 0.9; Eosinophils % 2.2; HCT 42.2 % (40.0-50.0); Immature Grans % 0.3; Lymphocytes % 27.1; MCH 31.8 pg (27.0-33.0); MCHC 33.2 % (32.0-36.0); MCV 96 fL (80-95); MPV 9.6 fL (8.0-11.0); Monocytes % 7.6; Neutrophils % 61.9; Platelet Count 178 10^3/uL (130-400); RDW 13.2 % (11.8-14.1); RDW-SD 46.8 fL
[2022-09-20 21:02] LABS: COMMENT (LAB VIEW ONLY) 71.74 mg/dL; PROTEIN 102.3 mg/dL; Prot/Crea Ur Ratio 1.42
[2022-09-20 22:08] LABS: ALT 22 U/L (16-63); AST 17 U/L (15-37); Albumin 3.6 g/dL (3.4-5.0); Alkaline Phosphatase 144 U/L (46-116); Anion Gap 9.6 mmol/L (3-11); BUN 30 mg/dL (7-18); Bilirubin, Total 0.4 mg/dL (0.2-1.0); CO2 23.4 mmol/L (21.0-32.0); CREATININE 1.8 mg/dL (0.70-1.30); Calcium 9.2 mg/dL (8.5-10.1); Chloride 106 mmol/L (98-107); Estimated GFR 36.66 (mL/min/1.73m2); Glucose 97 mg/dL (74-106); Potassium 4.5 mmol/L (3.5-5.1); Sodium 139 mmol/L (136-145); TSH 1.71 uIU/mL (0.36-3.74); Total Protein 6.9 g/dL (6.4-8.2); Vitamin B12 418 pg/mL (193-986)
[2022-09-20 22:27] LABS: Uric Acid 5.5 mg/dL (3.5-7.2)
== END 2022-09-20 16:23 | disposition home or self-care (01) ==
LOC: NCHCN 16:22
PROVIDERS: PCP Internal Medicine; Visit Provider Internal Medicine
DX: E03.9 Hypothyroidism, unspecified (principal); E78.5 Hyperlipidemia, unspecified; N18.30 Chronic kidney disease, stage 3 unspecified; G47.33 Obstructive sleep apnea (adult) (pediatric); F90.0 Attention-deficit hyperactivity disorder, predominantly inattentive type; I10 Essential (primary) hypertension; G31.84 Mild cognitive impairment of uncertain or unknown etiology
CPT/HCPCS: 80053; 82565; 82607; 84156; 84443; 84550; 85025

== ENCOUNTER 2023-02-20 21:17 | Outpatient (REF) | payer MEDICARE, BC, SELFPAY ==
[2023-02-20 15:52] LABS: Anion Gap 12.2 mmol/L (3-11); BUN 47 mg/dL (7-18); CO2 21.8 mmol/L (21.0-32.0); CREATININE 2.2 mg/dL (0.70-1.30); Calcium 9.2 mg/dL (8.5-10.1); Chloride 108 mmol/L (98-107); Estimated GFR 28.81 (mL/min/1.73m2); Glucose 96 mg/dL (74-106); Potassium 5.3 mmol/L (3.5-5.1); Sodium 142 mmol/L (136-145)
== END 2023-02-20 21:18 | disposition home or self-care (01) ==
LOC: NCHCN 21:17
PROVIDERS: PCP Internal Medicine; Visit Provider Internal Medicine
DX: I10 Essential (primary) hypertension (principal)
CPT/HCPCS: 80048

== ENCOUNTER → 2023-03-09 13:38 | Outpatient (BNVA) | payer MEDICARE, BC, SELFPAY | PROVIDERS: PCP Internal Medicine; Referring Provider Internal Medicine; Visit Provider Nurse Practitioner Adult Health | DX: G31.84 Mild cognitive impairment of uncertain or unknown etiology (principal); R26.89 Other abnormalities of gait and mobility | CPT/HCPCS: 99204; 99215 ==

== ENCOUNTER 2023-04-14 00:49 | Outpatient (CLI) | payer MEDICARE, BC, SELFPAY ==
--- NOTE | 2023-04-14 06:45 | DI.MRI_ITS ---
Exam(s) MR BRAIN WO EXAM: MR BRAIN WO CLINICAL HISTORY: memory changes, R41.3 TECHNIQUE: Multiplanar multisequence MRI of the brain was performed. COMPARISON: CR XR BONE SURVEY from 09/06/2021 CR XR SKULL 2V from 09/07/2021 FINDINGS: VENTRICLES AND EXTRA AXIAL SPACES: Normal in size and morphology for the patient's age. MIDLINE SHIFT: None. CEREBRAL PARENCHYMA: Mild atrophy. No focus of restricted diffusion to suggest acute infarct. No spa ce-occupying lesion identified. No significant white matter changes. HEMORRHAGE: None. BRAINSTEM/CEREBELLUM: Normal. VISUALIZED PARANASAL SINUSES/MASTOIDS:Opacification of the left maxillary sinus. Vasculature: Normal flow void. PITUITARY GLAND: Unremarkable. ORBITS: Unremarkable. Calvarium: 5 millimeter high signal lesion in the left occipital bone which appears to correspond to the area of lucency seen on skull series. No additional skull lesions are visualized. IMPRESSION: Unremarkable MRI of the brain. Opacification of the left maxillary sinus. 5 millimeter focus of high signal in the left occipital bone corresponding to the lucency seen on sku ll series. No additional lesions identified. DATA REPOSITORY:
== END 2023-04-14 01:09 ==
LOC: DI 00:49
PROVIDERS: PCP Internal Medicine; Visit Provider Nurse Practitioner Adult Health
DX: R41.3 Other amnesia (principal); J32.0 Chronic maxillary sinusitis; R93.7 Abnormal findings on diagnostic imaging of other parts of musculoskeletal system
CPT/HCPCS: 70551

== ENCOUNTER → 2023-05-10 10:55 | Outpatient (BNVA) | payer MEDICARE, BC, SELFPAY | PROVIDERS: PCP Internal Medicine; Referring Provider Internal Medicine; Visit Provider Nurse Practitioner Adult Health | DX: R41.3 Other amnesia (principal); F32.A Depression, unspecified; F90.9 Attention-deficit hyperactivity disorder, unspecified type; R26.81 Unsteadiness on feet; M89.9 Disorder of bone, unspecified | CPT/HCPCS: 99214 ==

== ENCOUNTER 2023-05-17 14:21 | Outpatient (REF) | payer MEDICARE, BC, SELFPAY ==
[2023-05-17 21:25] LABS: Abs Immature Grans 0.02 10^3/uL (0.0-0.06); Absolute Basophil Count 0.05 10^3/uL (0.0-0.2); Absolute Eosinophil Count 0.14 10^3/uL (0.0-0.7); Absolute Lymphocyte Count 1.76 10^3/uL (1.2-3.4); Absolute Monocyte Count 0.52 10^3/uL (0.1-0.8); Absolute Neutrophil Count 4.63 10^3/uL (1.2-6.7); Basophils % 0.7; HGB 13.7 g/dL (13.5-17.5); Immature Grans % 0.3; Lymphocytes % 24.7; MCH 32.5 pg (27.0-33.0); MCHC 33.4 % (32.0-36.0); MCV 97 fL (80-95); MPV 10.1 fL (8.0-11.0); Monocytes % 7.3; Platelet Count 201 10^3/uL (130-400); RBC 4.21 10^6/uL (4.36-5.78); RDW 13.5 % (11.8-14.1); RDW-SD 47.9 fL; WBC 7.12 10^3/uL (4.4-10.8)
[2023-05-17 21:54] LABS: ALT 20 U/L (16-63); AST 17 U/L (15-37); Albumin 3.7 g/dL (3.4-5.0); Alkaline Phosphatase 163 U/L (46-116); Anion Gap 10.8 mmol/L (3-11); BUN 45 mg/dL (7-18); Bilirubin, Total 0.5 mg/dL (0.2-1.0); CO2 22.2 mmol/L (21.0-32.0); CREATININE 2.3 mg/dL (0.70-1.30); Calcium 9.3 mg/dL (8.5-10.1); Chloride 108 mmol/L (98-107); Estimated GFR 27.32 (mL/min/1.73m2); Glucose 112 mg/dL (74-106); Potassium 4.9 mmol/L (3.5-5.1); Sodium 141 mmol/L (136-145)
[2023-05-19 13:40] LABS: Albumin 57.6 % (55.8-66.1); Albumin g/dL 4.1 g/dL (3.6-5.2); Comment (See Note); Total Protein 7.1 g/dL (6.3-8.2)
== END 2023-05-17 14:22 | disposition home or self-care (01) ==
LOC: NCHCN 14:21
PROVIDERS: PCP Internal Medicine; Visit Provider Internal Medicine
DX: I10 Essential (primary) hypertension (principal); E11.9 Type 2 diabetes mellitus without complications; N18.32 Chronic kidney disease, stage 3b; D47.2 Monoclonal gammopathy; R80.9 Proteinuria, unspecified; R26.89 Other abnormalities of gait and mobility
CPT/HCPCS: 80053; 84165; 85025

== ENCOUNTER 2023-05-19 15:55 | Outpatient (REF) | payer MEDICARE, BC, SELFPAY ==
[2023-05-19 17:12] LABS: PROTEIN 46.8 mg/dL (0.0-11.9)
[2023-05-19 17:13] LABS: Total Volume 1000 ml
== END 2023-05-19 15:56 | disposition home or self-care (01) ==
LOC: NCHCN 15:55
PROVIDERS: PCP Internal Medicine; Visit Provider Internal Medicine
DX: R80.9 Proteinuria, unspecified (principal); D47.2 Monoclonal gammopathy; N18.32 Chronic kidney disease, stage 3b; E11.9 Type 2 diabetes mellitus without complications; I10 Essential (primary) hypertension
CPT/HCPCS: 81050; 82565; 84155; 84156

== ENCOUNTER → 2023-07-12 10:57 | Outpatient (BNVA) | payer MEDICARE, BC, SELFPAY | PROVIDERS: PCP Internal Medicine; Visit Provider Nurse Practitioner Adult Health | DX: G31.84 Mild cognitive impairment of uncertain or unknown etiology (principal); F39 Unspecified mood [affective] disorder; G47.33 Obstructive sleep apnea (adult) (pediatric); F90.9 Attention-deficit hyperactivity disorder, unspecified type | CPT/HCPCS: 99213 ==

== ENCOUNTER 2023-10-27 02:27 | Outpatient (CLI) | payer MEDICARE, BC, SELFPAY ==
[2023-10-27 16:20] LABS: Abs Immature Grans 0.03 10^3/uL (0.0-0.06); Absolute Basophil Count 0.06 10^3/uL (0.0-0.2); Absolute Eosinophil Count 0.26 10^3/uL (0.0-0.7); Absolute Lymphocyte Count 2.55 10^3/uL (1.2-3.4); Absolute Monocyte Count 0.74 10^3/uL (0.1-0.8); Absolute Neutrophil Count 5.33 10^3/uL (1.2-6.7); Basophils % 0.7; Eosinophils % 2.9; Immature Grans % 0.3; Lymphocytes % 28.4; MCH 33.1 pg (27.0-33.0); MCHC 33.3 % (32.0-36.0); MCV 99 fL (80-95); MPV 9.1 fL (8.0-11.0); Monocytes % 8.2; Neutrophils % 59.5; Platelet Count 178 10^3/uL (130-400); RBC 3.62 10^6/uL (4.36-5.78); RDW 14.9 % (11.8-14.1); RDW-SD 53.7 fL; WBC 8.97 10^3/uL (4.4-10.8)
[2023-10-27 17:14] LABS: Albumin 3.6 g/dL (3.4-5.0); Anion Gap 15.1 mmol/L (3-11); CO2 16.9 mmol/L (21.0-32.0); CREATININE 3.4 mg/dL (0.70-1.30); Calcium 9.6 mg/dL (8.5-10.1); Chloride 108 mmol/L (98-107); Estimated GFR 16.98 (mL/min/1.73m2); Glucose 105 mg/dL (74-106); Potassium 5.3 mmol/L (3.5-5.1); Sodium 140 mmol/L (136-145)
[2023-10-27 17:22] LABS: BUN 90 mg/dL (7-18)
[2023-10-27 17:30] LABS: COMMENT (LAB VIEW ONLY) 90.98 mg/dL; PROTEIN 22.9 mg/dL; Prot/Crea Ur Ratio 0.25
[2023-10-30 08:58] LABS: C4 Complement 29 mg/dL (13-39)
== END 2023-10-27 02:28 | disposition home or self-care (01) ==
LOC: LBO 02:27
PROVIDERS: PCP Internal Medicine; Visit Provider Internal Medicine Nephrology
DX: N05.1 Unspecified nephritic syndrome with focal and segmental glomerular lesions (principal); D47.2 Monoclonal gammopathy; E87.5 Hyperkalemia; E87.20 Acidosis, unspecified; I10 Essential (primary) hypertension
CPT/HCPCS: 36415; 80048; 82040; 82565; 84156; 85025; 86160

== ENCOUNTER 2023-12-01 01:11 | Outpatient (CLI) | payer MEDICARE, OTHER, SELFPAY ==
[2023-12-01 10:41] LABS: Abs Immature Grans 0.02 10^3/uL (0.0-0.06); Absolute Basophil Count 0.05 10^3/uL (0.0-0.2); Absolute Eosinophil Count 0.25 10^3/uL (0.0-0.7); Absolute Lymphocyte Count 1.63 10^3/uL (1.2-3.4); Absolute Monocyte Count 0.54 10^3/uL (0.1-0.8); Absolute Neutrophil Count 4.02 10^3/uL (1.2-6.7); Basophils % 0.8; Eosinophils % 3.8; HCT 32.5 % (40.0-50.0); HGB 11.1 g/dL (13.5-17.5); Immature Grans % 0.3; MCH 34.4 pg (27.0-33.0); MCHC 34.2 % (32.0-36.0); MCV 101 fL (80-95); MPV 9.6 fL (8.0-11.0); Monocytes % 8.3; Neutrophils % 61.8; Platelet Count 182 10^3/uL (130-400); RBC 3.23 10^6/uL (4.36-5.78); RDW 14.6 % (11.8-14.1); RDW-SD 54.4 fL; WBC 6.51 10^3/uL (4.4-10.8)
[2023-12-01 10:42] LABS: Bilirubin Negative (Negative); Blood Negative (Negative); Clarity Clear (Clear); Glucose Negative (Negative); Ketones Negative (Negative); Leukocyte Esterase Negative (Negative); Nitrite Negative (Negative); Specific Gravity 1.015 (1.005-1.025); Urobilinogen 0.2 mg/dL (Up to 0.2)
[2023-12-01 11:01] LABS: Albumin 3.2 g/dL (3.4-5.0); Anion Gap 11.9 mmol/L (3-11); BUN 61 mg/dL (7-18); CO2 20.1 mmol/L (21.0-32.0); CREATININE 2.6 mg/dL (0.70-1.30); Calcium 9.2 mg/dL (8.5-10.1); Chloride 111 mmol/L (98-107); Estimated GFR 23.43 (mL/min/1.73m2); Glucose 110 mg/dL (74-106); PHOSPHORUS 3.2 mg/dL (2.6-4.7); Potassium 4.6 mmol/L (3.5-5.1); Sodium 143 mmol/L (136-145)
[2023-12-01 11:24] LABS: Ferritin 227 ng/mL (26-388)
[2023-12-01 11:39] LABS: Iron 76 ug/dL (65-175); Total Iron Binding Capacity 199 ug/dL (250-450); Transferrin Sat 38 % (20-55)
[2023-12-01 18:25] LABS: Parathyroid Hormone,Intact 136 pg/mL (19-88)
[2023-12-04 11:45] LABS: C3 Complement 103 mg/dL (81-157); C4 Complement 27 mg/dL (13-39)
[2023-12-04 14:22] LABS: Albumin g/dL 3.5 g/dL (3.6-5.2); Comment (See Note); Total Protein 6.2 g/dL (6.3-8.2)
[2023-12-04 14:27] LABS: Immunotyping, Serum (See Note)
== END 2023-12-01 01:12 | disposition home or self-care (01) ==
LOC: LBO 01:11
PROVIDERS: PCP Internal Medicine; Visit Provider Internal Medicine Nephrology
DX: N18.30 Chronic kidney disease, stage 3 unspecified (principal); E87.20 Acidosis, unspecified; E87.5 Hyperkalemia; I10 Essential (primary) hypertension
CPT/HCPCS: 36415; 80048; 81003; 82040; 82728; 83540; 83550; 83970; 84100; 84165; 85025; 86160; 86320

== ENCOUNTER → 2023-12-05 10:20 | Outpatient (BNVA) | payer MEDICARE, OTHER, SELFPAY | PROVIDERS: PCP Family Medicine; Referring Provider Internal Medicine; Visit Provider Nurse Practitioner Adult Health | DX: G31.84 Mild cognitive impairment of uncertain or unknown etiology (principal) | CPT/HCPCS: 99215; 99417 ==

== ENCOUNTER 2023-12-29 03:39 | Outpatient (CLI) | payer MEDICARE, OTHER, SELFPAY ==
[2023-12-29 15:10] LABS: Bilirubin Negative (Negative); Blood Negative (Negative); Clarity Clear (Clear); Glucose Negative (Negative); Ketones Trace mg/dL (Negative); Leukocyte Esterase Negative (Negative); Nitrite Negative (Negative); Specific Gravity 1.025 (1.005-1.025); Urobilinogen 0.2 mg/dL (Up to 0.2)
[2023-12-29 15:17] LABS: Abs Immature Grans 0.03 10^3/uL (0.0-0.06); Absolute Basophil Count 0.07 10^3/uL (0.0-0.2); Absolute Eosinophil Count 0.24 10^3/uL (0.0-0.7); Absolute Lymphocyte Count 1.81 10^3/uL (1.2-3.4); Absolute Monocyte Count 0.64 10^3/uL (0.1-0.8); Absolute Neutrophil Count 4.63 10^3/uL (1.2-6.7); Basophils % 0.9; Eosinophils % 3.2; HCT 36.9 % (40.0-50.0); HGB 12.3 g/dL (13.5-17.5); Immature Grans % 0.4; Lymphocytes % 24.4; MCH 33.8 pg (27.0-33.0); MCHC 33.3 % (32.0-36.0); MCV 101 fL (80-95); MPV 9.2 fL (8.0-11.0); Monocytes % 8.6; Neutrophils % 62.5; Platelet Count 195 10^3/uL (130-400); RBC 3.64 10^6/uL (4.36-5.78); RDW 13.5 % (11.8-14.1); RDW-SD 50.7 fL; WBC 7.42 10^3/uL (4.4-10.8)
[2023-12-29 15:22] LABS: COMMENT (LAB VIEW ONLY) 190.19 mg/dL; PROTEIN 53.9 mg/dL; Prot/Crea Ur Ratio 0.28
[2023-12-29 15:59] LABS: Albumin 3.3 g/dL (3.4-5.0); Anion Gap 9.8 mmol/L (3-11); BUN 52 mg/dL (7-18); CO2 22.2 mmol/L (21.0-32.0); CREATININE 2.7 mg/dL (0.70-1.30); Calcium 9.3 mg/dL (8.5-10.1); Chloride 109 mmol/L (98-107); Glucose 92 mg/dL (74-106); PHOSPHORUS 3.1 mg/dL (2.6-4.7); Potassium 4.2 mmol/L (3.5-5.1); Sodium 141 mmol/L (136-145)
[2023-12-29 16:28] LABS: Iron 53 ug/dL (65-175); Total Iron Binding Capacity 242 ug/dL (250-450); Transferrin Sat 22 % (20-55)
[2023-12-29 16:44] LABS: Ferritin 183 ng/mL (26-388)
[2024-01-01 09:38] LABS: C3 Complement 117 mg/dL (81-157); C4 Complement 31 mg/dL (13-39); Kappa Free Light Chain 6.19 mg/dL (0.33-1.94); Lambda Free Light Chain 2.34 mg/dL (0.57-2.63)
[2024-01-01 10:20] LABS: Parathyroid Hormone,Intact 177 pg/mL (19-88)
[2024-01-01 14:03] LABS: Albumin, Urine % 63.3 %; Albumin, Urine mg/dL 29 mg/dL; Globulins, Urine % 36.7 %; Globulins, Urine mg/dL 17 mg/dL; Immunotyping, Urine (See Note); Total Protein Urine 46 mg/dL (See Note)
[2024-01-01 14:18] LABS: Albumin g/dL 3.8 g/dL (3.6-5.2); Comment (See Note); Total Protein 6.6 g/dL (6.3-8.2)
[2024-01-01 15:48] LABS: Immunotyping, Serum (See Note)
== END 2023-12-29 03:40 | disposition home or self-care (01) ==
LOC: LBO 03:39
PROVIDERS: PCP Family Medicine; Visit Provider Internal Medicine Nephrology
DX: E11.22 Type 2 diabetes mellitus with diabetic chronic kidney disease (principal)
CPT/HCPCS: 36415; 80048; 84156; 84166; 86335; 81003; 82040; 82565; 82728; 83540; 83550; 83883; 83970; 84100; 84165; 85025; 86160; 86320

== ENCOUNTER 2024-05-08 09:15 | Emergency (ER) | payer MEDICARE, OTHER, SELFPAY ==
[2024-05-08 09:22] VITALS: BP 152/73; PULSE 53; RESP 18; TEMP 36.6; O2SAT 97
[2024-05-08 09:27] VITALS: O2SAT 94
--- NOTE | 2024-05-08 09:50 | W.ED.GENAD ---
Discharge Plan Disposition Patient Disposition: Home Condition: Improving Discharge Details Clinical Impression: Acute retention of urine, Enlarged prostate, Incidental pulmonary nodule, Hypomagnesemia, Hematuria Primary Care Provider: Priyank Carvalho ED Provider: Reva Jacobsen Home Meds and New Rx's Prescriptions: Continued calcitriol 0.25 mcg capsule 0.25 mcg PO DAILY torsemide 10 mg tablet 10 mg PO DAILY mecobalamin (vitamin B12) 1,000 mcg tablet,chewable 1,000 mcg PO DAILY turmeric root extract 1,053 mg tablet 1,076 mg PO DAILY donepezil 5 mg tablet 5 mg PO QHS Qty: 60 2RF methylphenidate HCl 36 mg tablet extended release 24hr 36 mg PO DAILY MDD 36 mg Qty: 90 0RF Rx Instructions: 90 day supply atorvastatin 20 mg tablet 20 mg PO DAILY allopurinol 100 mg tablet 200 mg PO DAILY melatonin 10 mg tablet 10 mg PO HS PRN memantine 5 mg tablet 10 mg PO BID Qty: 180 2RF levothyroxine 50 MCG tablet 50 mcg PO DAILY lisinopril 40 MG tablet 40 mg PO DAILY tamsulosin 0.4 mg capsule 0.4 mg PO DAILY acetaminophen 500 mg tablet 1,000 mg PO Q8H PRN (Reason: pain) Qty: 90 3RF acyclovir 200 mg capsule 200 mg PO DAILY Discharge Instructions Instructions: How to Care for Your Lama Catheter, Urinary Retention Additional Instructions: Your abdominal pain and flank pain is likely associated with your urinary retention and bladder being stretched. The catheter will allow for the bladder to heal so that you are able to urinate again without in the future. This will need to stay in for the next few days. Please call urology to schedule follow-up appointment to discuss removal of the catheter and assistance with voiding. Please continue to encourage hydration. Catheter care as directed by nursing staff. Catheter care is also attached to this packet. Your magnesium was slightly low, may want to consider increasing the magnesium rich foods in your diet. Please also follow-up with your primary care regarding your elevated blood pressure and the incidental pulmonary nodule that was seen on the imaging. If you develop any fever/chills, increased pain or other new/worsening symptoms please seek care urgently once again. Referrals: Priyank Carvalho MD [Primary Care Provider] - Km Bob MD [ [facility] STAFF PHYSICIAN] - Discharge Data Discharge Date/Time-TO BE ENTERED AT DEPARTURE: 05/08/24 12:45 HPI General Date/Time Provider Initiated Documentation: 05/08/24 09:16. Limitations to Documentation: no limitations. Information obtained by: patient, family, RN notes reviewed and old records reviewed. History of Present Illness 83 year old M presents to the emergency department with the chief complaint of lower abdominal pain, described as severe, with intensity rated at 9. Quality is described as aching, and is localized to the abdomen. Patient reports no radiation; denies radiation to back. Patient started experiencing this day(s) and it has been constant. No relieving factors improve symptom(s), No exacerbating factors reported . Patient notes loss of appetite; denies chest pain, cough, diaphoresis, fever/chills, headaches, nausea/vomiting, shortness of breath and weakness. Patient did receive the following treatments prior to arrival, other (stool soften, 1BM last night with no improvement) Related Data Home Medications ?Medication ?Instructions ?Recorded ?Confirmed levothyroxine 50 mcg tablet 50 mcg PO DAILY 03/07/13 05/08/24 lisinopril 40 mg tablet 40 mg PO DAILY 03/07/13 05/08/24 acetaminophen 500 mg tablet 1,000 mg (2 x 500 mg) PO Q8H PRN 11/06/19 05/08/24 pain #90 tabs atorvastatin 20 mg tablet 20 mg PO DAILY 02/02/23 05/08/24 calcitriol 0.25 mcg capsule 0.25 mcg PO DAILY 07/12/23 05/08/24 mecobalamin (vitamin B12) 1,000 1,000 mcg PO DAILY 07/12/23 05/08/24 mcg chewable tablet torsemide 10 mg tablet 10 mg PO DAILY 07/12/23 05/08/24 turmeric root extract 1,053 mg 1,076 mg PO DAILY 07/12/23 05/08/24 tablet allopurinol 100 mg tablet 200 mg PO DAILY 11/24/23 05/08/24 melatonin 10 mg tablet 10 mg PO HS PRN 11/24/23 05/08/24 tamsulosin 0.4 mg capsule 0.4 mg PO DAILY 12/01/23 05/08/24 memantine 5 mg tablet 10 mg (2 x 5 mg) PO BID #180 tabs 12/05/23 05/08/24 donepezil 5 mg tablet 5 mg PO QHS #60 tabs 12/07/23 05/08/24 methylphenidate HCl 36 mg 36 mg PO DAILY #90 tabs 03/29/24 05/08/24 tablet,extended release 24 hr acyclovir 200 mg capsule 200 mg PO DAILY 05/08/24 05/08/24 Previous Rx's ?Medication ?Instructions ?Recorded acetaminophen 500 mg tablet 1,000 mg (2 x 500 mg) PO Q8H PRN 11/06/19 pain #90 tabs memantine 5 mg tablet 10 mg (2 x 5 mg) PO BID #180 tabs 12/05/23 donepezil 5 mg tablet 5 mg PO QHS #60 tabs 12/07/23 methylphenidate HCl 36 mg 36 mg PO DAILY #90 tabs 03/29/24 tablet,extended release 24 hr Allergies Allergy/AdvReac Type Severity Reaction Status Date / Time ibuprofen Allergy Intermediate Other (See Verified 05/08/24 09:25 Comment) hydrochlorothiazide Allergy Unknown Other (See Verified 05/08/24 09:25 Comment) metformin Allergy Unknown Other (See Verified 05/08/24 09:25 Comment) tolmetin Allergy Unknown Skin Rash Verified 05/08/24 09:25 epoxy resin Allergy Skin Rash Verified 05/08/24 09:25 sodium bicarbonate AdvReac Other (See Verified 05/08/24 09:25 Comment) General Stated Complaint: Abd Prob MICHAEL: 3 Review of Systems Constitutional Constitutional: Reports as per HPI, Denies chills, Denies fatigue, Denies fever(s) and Denies headache(s) ENT Ears, Nose, Mouth, and Throat: Denies headache(s) Cardiovascular Cardiovascular: Reports as per HPI, Denies chest pain and Denies dyspnea Respiratory Respiratory: Reports as per HPI, Denies cough and Denies dyspnea Gastrointestinal Gastrointestinal: Reports as per HPI, Denies melena, Denies hematochezia, Reports change in bowel habits (constipated for few days, had BM last night), Denies diarrhea, Denies loose stools, Denies nausea and Denies vomiting Genitourinary Genitourinary: Denies system reviewed and no additional complaints, except as documented (patient denies any change in urinary habits) and Denies testicular pain Musculoskeletal Musculoskeletal: Reports as per HPI and Denies back pain Integumentary/Breasts Skin/Breast: Reports as per HPI and Denies rash Neurologic Neurologic: Reports as per HPI and Denies headache(s) Endocrine Endocrine: Denies fatigue Exam Const General: cooperative, healthy appearing, uncomfortable (laying on side, eyes closed, appears uncomfortable), no acute distress and well developed Nutritional Appearance: average body habitus and well nourished Orientation: alert and awake HENAL Head: normal to inspection Mouth: moist mucous membranes Resp Effort & Inspection: normal respiratory effort, able to speak in complete sentences and no respiratory distress Auscultation: clear to auscultation bilaterally, no rales, no rhonchi and no wheezes Cardio Rate: regular rate Rhythm: regular rhythm Heart Sounds: S1 normal and S2 normal GI Inspection: normal to inspection and scar (RUQ scar from previous cholecystectomy, well healed) Palpation: soft, no hepatosplenomegaly, firm in the LLQ, no hernias, no pulsatile masses, tender in the LLQ and in the RLQ; not in the epigastrum, not in the LUQ, not in the RUQ, not at McBurney's point, Edmondson's sign negative, obturator sign negative and with no rebound tenderness and No ascites Back/Spine/Pelvis Back: no CVA tenderness Skin General skin exam: no rashes or lesions noted Trauma: no lacerations or abrasions Neuro General: patient alert and patient awake Cognition: normal cognition Speech: speech normal Gait: normal gait Extrem General: normal to inspection (loss of arch left foot, reported to be chronic), no pedal edema, normal gait and other (intact distal pulses) Psych Appearance: grossly normal and well kempt Mental Status: mental status grossly normal Speech and Movement: speech and movement normal Course Vital Signs Vital signs: Vital Signs Temperature 36.6 C 05/08/24 09:22 Pulse 53 L 05/08/24 09:22 Respiratory Rate 18 05/08/24 09:22 Blood Pressure 152/73 H 05/08/24 09:22 Pulse Oximetry 97 05/08/24 09:22 Temperature 36.6 C 05/08/24 09:22 Temperature Source Oral 05/08/24 09:22 Pulse 53 L 05/08/24 09:22 Respiratory Rate 18 05/08/24 09:22 Blood Pressure 152/73 H 05/08/24 09:22 Blood Pressure Position Supine 05/08/24 09:22 Pulse Oximetry 97 05/08/24 09:22 Oxygen Delivery Method Room Air 05/08/24 09:22 Oxygen Flow Rate 0 05/08/24 09:22 Pain Level 9 05/08/24 09:22 Medical Decision Making Patient is a pleasant 83 year old male, accompanied by his , with PMH significant for hypertension, BUNNY, type 2 diabetes that are well-controlled, benign prostatic hyperplasia with urinary obstruction, orthostatic dizziness, monoclonal gammopathy with undetermined significance, hyperlipidemia, ADD, GERD, CKD, hypothyroid, mild cognitive impairment, presenting with c/c of lower abdominal pain. Per 's report, he first endorsed some abdominal discomfort 2 to 3 days ago. Symptoms do not sound like they have been consistently very bothersome for the patient but have been progressively worsening. reports a general decrease in his p.o. intake, patient has been losing weight. This was noted in his most recent palliative care notes as well. He denies any nausea or vomiting. Last night, the pain became much more intense. He had previously stopped his stool softeners and did take this resulting in bowel movement yesterday evening. He denies any change or improvement in his abdominal discomfort. Denies any blood in his stool or black stools. Past surgical history is significant for cholecystectomy. He has not had any upper abdominal pain. He denies any chest pain, shortness of breath. No fevers or chills. Denies any radiation of pain. No testicular pain or back pain. On exam, patient appears uncomfortable. He is hemodynamically stable. Lungs are clear, normal cardiac exam. Intact distal pulses. Left foot does have chronic appearing flattened arch compared to the contralateral side. Exam of the abdomen shows large well-healed scar from historical cholecystectomy. Does have a firm area in the left lower quadrant which is tender for the patient. This could represent a stool collection the setting of known constipation. Prior to the bowel movement last night, last bowel movement was few days prior. Sounds like he had issues with constipation historically. Labs reviewed. Patient has an elevated white count of 12.7. H&H remained stable for the patient. CMP concerning for 2.9 creatinine, this is baseline for the patient. His mag is low at 1.5, will give 1 g IV now. Alk phos is also elevated at 129 but again, baseline from patient. He has not yet been able to give a urine, will obtain a postvoid residual after he is able to provide a sample. FINDINGS: Lung Bases: Interstitial changes at the lung bases. 8 x 8 x 5 millimeter nodule posterior right lower lobe. Heart is mildly enlarged. Severe coronary artery calcifications. Small hiatal hernia. Liver: Normal density. No suspicious mass. Gallbladder and biliary tract: Status post cholecystectomy. No biliary dilatation. Pancreas: Normal density. No abnormal calcifications or inflammatory process. Spleen: Normal. Kidneys: Normal size, contour and axis. No radiodense stones. Mild bilateral hydronephrosis which may be due to an overly distended urinary bladder. No suspicious masses seen. Adrenal glands: No masses seen. Lymph nodes: Within normal limits. Vasculature: Abdominal aorta ectatic. Moderate to severe atherosclerotic changes. Soft tissues: Small bilateral fatty containing inguinal hernias. Bladder: [place] distended, above the level of the umbilicus. No wall thickening. No mass or calculi. Small diverticula seen superiorly. Bowel: No obstruction or bowel wall thickening. Diverticulosis. No evidence of diverticulitis. Moderate quantity of stool. Peritoneal cavity: No ascites. No focal collection. No mesenteric inflammatory response. Reproductive organs: Prostate enlarged. Bones: Unremarkable for age. IMPRESSION: [place] distended urinary bladder with superior diverticula. Mild bilateral hydronephrosis likely secondary to the overly distended urinary bladder. Mildly enlarged prostate. 8 millimeter right lower lobe nodule. Comparison with prior exams recommended if available. If not recommend follow-up chest CT in 3 months. Unexpected findings Patient continues to be unable to void spontaneously. The overly distended bladder noted on the CT scan would correlate with his lower abdominal pain, I do feel that it is appropriate to place a Lama catheter. Per , he has required this in the past. Did discuss risks and benefits. This will also allow us to ensure no infection and obtain a urinalysis. Urinalysis concerning for some blood, likely associated with catheter placement. Otherwise without evidence of infection. Will send home with a leg bag, patient's pain did resolve after placement of the catheter. Have referred him to local urologist. Return precautions were discussed. Lama care discussed. All the questions and concerns were addressed in agreement this plan.-I did discuss the incidental finding of the pulmonary nodule as well. She will discuss this further with her primary care and discuss repeat imaging as recommended by radiologist. Also encouraged a increase p.o. magnesium. Return precautions discussed. All of the questions and concerns were addressed and they are agreement this plan. Quality:SDOH Health Related Social Needs: No Data to Display PFSH All Active Problems (Updated 05/08/24 @ 12:44 by BENJAMIN Ferguson) Hematuria (Acute) Hypomagnesemia (Acute) Incidental pulmonary nodule (Acute) Enlarged prostate (Acute) Acute retention of urine (Acute) Mild cognitive impairment, so stated (Acute) Palliative care encounter (Acute) Skull lesion (Acute) Memory deficit (Acute) Gait instability (Acute) Sensorineural hearing loss (SNHL) of both ears (Acute) Impacted cerumen, right ear (Acute) Otomycosis of left ear (Acute) Conductive hearing loss, external ear (Acute) Tendonitis (Acute) Gout of right wrist (Acute) Right wrist tendinitis (Acute) Right wrist effusion (Acute) Right wrist pain (Acute) Status post left rotator cuff repair (Acute 11/06/19) Left rotator cuff tear (Acute) Impacted cerumen of both ears (Acute) Conductive hearing loss (Chronic) Sensorineural hearing loss of combined sites, bilateral (Acute 03/14/14) Abnormal auditory perception of both ears (Acute 03/14/14) Medical History Dyspepsia Benign essential hypertension Obstructive sleep apnea Osteoarthritis of hands, bilateral Type 2 diabetes mellitus Adenomatous colon polyp Benign prostatic hyperplasia with urinary obstruction Orthostatic dizziness Perennial allergic rhinitis Knee pain, chronic Actinic keratosis Osteoarthritis of carpometacarpal joint Monoclonal gammopathy of undetermined significance Proteinuria Skin lesion of face Recurrent herpes simplex Hyperlipidemia ADD (attention deficit disorder) BPH (benign prostatic hyperplasia) GERD (gastroesophageal reflux disease) Chronic kidney disease (CKD) Allergic rhinitis Hypertension Hypothyroid Gout Diabetes Surgical History History of repair of right rotator cuff History of cystoscopy Cholecystectomy Family History Father Cancer bladder Mother Stroke Social History Smoking/Tobacco Use Status: Former Tobacco Use Smoking risk assessment performed?: Yes Alcohol Intake: former Drug use: Never Substance use type: does not use Housing: house Pets and animals: Yes (1 dog) Pets and animals: dog(s) Do you feel safe at home: Yes Do you feel safe in your relationship?: Yes
[2024-05-08 10:01] VITALS: BP 146/64; PULSE 51
[2024-05-08 10:06] VITALS: O2SAT 100
[2024-05-08 10:13] LABS: Abs Immature Grans 0.04 10^3/uL (0.0-0.06); Absolute Basophil Count 0.05 10^3/uL (0.0-0.2); Absolute Eosinophil Count 0.01 10^3/uL (0.0-0.7); Absolute Monocyte Count 0.58 10^3/uL (0.1-0.8); Basophils % 0.4 %; Eosinophils % 0.1 %; HCT 40.5 % (40.0-50.0); HGB 13.1 g/dL (13.5-17.5); Immature Grans % 0.3 %; Lymphocytes % 6.5 %; MCH 32.8 pg (27.0-33.0); MCHC 32.3 % (32.0-36.0); MCV 102 fL (80-95); MPV 9.2 fL (8.0-11.0); Monocytes % 4.6 %; Neutrophils % 88.1 %; Platelet Count 170 10^3/uL (130-400); RBC 3.99 10^6/uL (4.36-5.78); RDW 13.6 % (11.8-14.1)
[2024-05-08 10:14] LABS: Absolute Lymphocyte Count 0.83 10^3/uL (1.2-3.4); Absolute Neutrophil Count 11.19 10^3/uL (1.2-6.7)
[2024-05-08] MEDS: ACETAMINOPHEN 1,000 MG/100 ML BTL 400 MG IVPB (10:16)
[2024-05-08] MEDS: Lactated Ringers 500 ML IV (10:17)
[2024-05-08 10:27] LABS: ALT 32 U/L (16-63); AST 20 U/L (15-37); Albumin 3.6 g/dL (3.4-5.0); Alkaline Phosphatase 129 U/L (46-116); BUN 55 mg/dL (7-18); Bilirubin, Total 0.48 mg/dL (0.2-1.0); CREATININE 2.9 mg/dL (0.70-1.30); Calcium 9.6 mg/dL (8.5-10.1); Chloride 108 mmol/L (98-107); Estimated GFR 20.55 (mL/min/1.73m2); Glucose 127 mg/dL (74-106); Magnesium 1.5 mg/dL (1.8-2.4); Potassium 4.6 mmol/L (3.5-5.1); Sodium 141 mmol/L (136-145); Total Protein 7.2 g/dL (6.4-8.2)
[2024-05-08] MEDS: MAGNESIUM SULFATE 1 GM/100 ML BAG IVINF (10:54)
--- NOTE | 2024-05-08 11:15 | DI.CT_ITS ---
Exam(s) CT ABDOMEN PELVIS WO EXAM: CT ABDOMEN PELVIS WO CLINICAL HISTORY: lower abdominal pain. TECHNIQUE: Imaging Protocol: Axial computed tomography images with coronal and sagittal reformatted images were created and reviewed. Oral: no COMPARISON: No exams were available for comparison FINDINGS: Lung Bases: Interstitial changes at the lung bases. 8 x 8 x 5 millimeter nodule posterior right lowe r lobe. Heart is mildly enlarged. Severe coronary artery calcifications. Small hiatal hernia. Liver: Normal density. No suspicious mass. Gallbladder and biliary tract: Status post cholecystectomy. No biliary dilatation. Pancreas: Normal density. No abnormal calcifications or inflammatory process. Spleen: Normal. Kidneys: Normal size, contour and axis. No radiodense stones. Mild bilateral hydronephrosis which ma y be due to an overly distended urinary bladder. No suspicious masses seen. Adrenal glands: No masses seen. Lymph nodes: Within normal limits. Vasculature: Abdominal aorta ectatic. Moderate to severe atherosclerotic changes. Soft tissues: Small bilateral fatty containing inguinal hernias. Bladder: [place] distended, above the level of the umbilicus. No wall thickening. No mass or calculi. Small diverticula seen superiorly. Bowel: No obstruction or bowel wall thickening. Diverticulosis. No evidence of diverticulitis. Mode rate quantity of stool. Peritoneal cavity: No ascites. No focal collection. No mesenteric inflammatory response. Reproductive organs: Prostate enlarged. Bones: Unremarkable for age. IMPRESSION: [place] distended urinary bladder with superior diverticula. Mild bilateral hydronephrosis likely sec ondary to the overly distended urinary bladder. Mildly enlarged prostate. 8 millimeter right lower lobe nodule. Comparison with prior exams recommended if available. If not recommend follow-up chest CT in 3 months. Unexpected findings RADIATION DOSE DELIVERED: Total DLP DATA REPOSITORY: All CT scans at this facility are submitted to the National Radiology Data Registry (NRDR) Dose Index Registry (DIR) with the [employer] ([employer]). RADIATION OPTIMIZATION: All CT scans at this facility use at least one of these dose optimization te chniques: automated exposure control; mA and/or kV adjustment per patient size (includes targeted exa ms where dose is matched to clinical indication); or iterative reconstruction.
[2024-05-08 11:43] VITALS: O2SAT 99
[2024-05-08 11:47] LABS: Bilirubin Negative (Negative); Blood Moderate (Negative); Clarity Clear (Clear); Glucose Negative (Negative); Ketones Negative (Negative); Leukocyte Esterase Negative (Negative); Nitrite Negative (Negative); Urobilinogen 0.2 mg/dL (Up to 0.2)
[2024-05-08 11:56] LABS: Bacteria Rare HPF (Negative); C & S Indicated? No; Crystals Negative HPF (Negative); Epithelial Cells Negative HPF (Negative); Mucus Negative (Negative); WBC 0-2 HPF (0-5)
[2024-05-08 12:45] VITALS: BP 142/68; PULSE 57; RESP 19; TEMP 36.4; O2SAT 99
--- NOTE | 2024-05-08 12:55 | NUR.NOTE ---
Referral sent to urology within the next couple days for urine retention. Nursing Note:
== END 2024-05-08 12:45 | disposition home or self-care (01) ==
PROVIDERS: Emergency Provider Physician Assistant; PCP Family Medicine
DX: N40.1 Benign prostatic hyperplasia with lower urinary tract symptoms (principal); R33.8 Other retention of urine; R91.1 Solitary pulmonary nodule; E83.42 Hypomagnesemia; R31.9 Hematuria, unspecified; I12.9 Hypertensive chronic kidney disease with stage 1 through stage 4 chronic kidney disease, or unspecified chronic kidney disease; E11.22 Type 2 diabetes mellitus with diabetic chronic kidney disease; N18.9 Chronic kidney disease, unspecified; E78.5 Hyperlipidemia, unspecified; Z79.899 Other long term (current) drug therapy; Z87.891 Personal history of nicotine dependence
CPT/HCPCS: 36415; 80053; 96365; 96366; 96367; 99284; 74176; 81003; 81015; 83735; 85025; J0131; J3475

== ENCOUNTER 2024-05-09 20:32 | Emergency (ER) | payer MEDICARE, OTHER, SELFPAY ==
[2024-05-09 20:53] VITALS: PULSE 82; RESP 18; TEMP 36.6; O2SAT 97
--- NOTE | 2024-05-09 21:33 | ED.GENADUL_ITS ---
Discharge Plan Disposition Patient Disposition: Home Discharge Details Clinical Impression: Leakage from urinary catheter Primary Care Provider: Priyank Carvalho ED Provider: Oralia Maloney Home Meds and New Rx's Prescriptions: Continued calcitriol 0.25 mcg capsule 0.25 mcg PO DAILY torsemide 10 mg tablet 10 mg PO DAILY mecobalamin (vitamin B12) 1,000 mcg tablet,chewable 1,000 mcg PO DAILY turmeric root extract 1,053 mg tablet 1,076 mg PO DAILY donepezil 5 mg tablet 5 mg PO QHS Qty: 60 2RF methylphenidate HCl 36 mg tablet extended release 24hr 36 mg PO DAILY MDD 36 mg Qty: 90 0RF Rx Instructions: 90 day supply atorvastatin 20 mg tablet 20 mg PO DAILY allopurinol 100 mg tablet 200 mg PO DAILY melatonin 10 mg tablet 10 mg PO HS PRN memantine 5 mg tablet 10 mg PO BID Qty: 180 2RF levothyroxine 50 MCG tablet 50 mcg PO DAILY lisinopril 40 MG tablet 40 mg PO DAILY tamsulosin 0.4 mg capsule 0.4 mg PO DAILY acetaminophen 500 mg tablet 1,000 mg PO Q8H PRN (Reason: pain) Qty: 90 3RF acyclovir 200 mg capsule 200 mg PO DAILY Discharge Instructions Additional Instructions: Please follow-up as scheduled with urology. Return to emergency care if you develop new fevers, abdominal pain, nausea/vomiting, decreased urine output/clogged catheter, or if you are very worried you need to be rechecked again immediately HPI General Date/Time Provider Initiated Documentation: 05/09/24 20:38 . HPI Narrative: Stef is an 83-year-old male who presents to the emergency department today for evaluation of leaking from his [place] catheter placed yesterday. He reports that he had a catheter placed yesterday due to urinary retention, has a follow- up appointment with Dr. Bob on the . He denies fever/chills, nausea/vomiting, abdominal pain, change in urine output, hematuria. Physical exam very reassuring. Patient is alert and oriented, in no acute distress. Abdomen is soft, nondistended, nontender to palpation. Urine draining from bag, the cannulas 6 by YAHAIRA Briggs in triage. History and presentation very reassuring. Consistent with bag malfunction, no indication for diagnostic imaging or blood work/urinalysis at this time. Recommend follow-up with urology as scheduled. Patient is agreeable with plan of care. Related Data Home Medications ?Medication ?Instructions ?Recorded ?Confirmed levothyroxine 50 mcg tablet 50 mcg PO DAILY 03/07/13 05/08/24 lisinopril 40 mg tablet 40 mg PO DAILY 03/07/13 05/08/24 acetaminophen 500 mg tablet 1,000 mg (2 x 500 mg) PO Q8H PRN 11/06/19 05/08/24 pain #90 tabs atorvastatin 20 mg tablet 20 mg PO DAILY 02/02/23 05/08/24 calcitriol 0.25 mcg capsule 0.25 mcg PO DAILY 07/12/23 05/08/24 mecobalamin (vitamin B12) 1,000 1,000 mcg PO DAILY 07/12/23 05/08/24 mcg chewable tablet torsemide 10 mg tablet 10 mg PO DAILY 07/12/23 05/08/24 turmeric root extract 1,053 mg 1,076 mg PO DAILY 07/12/23 05/08/24 tablet allopurinol 100 mg tablet 200 mg PO DAILY 11/24/23 05/08/24 melatonin 10 mg tablet 10 mg PO HS PRN 11/24/23 05/08/24 tamsulosin 0.4 mg capsule 0.4 mg PO DAILY 12/01/23 05/08/24 memantine 5 mg tablet 10 mg (2 x 5 mg) PO BID #180 tabs 12/05/23 05/08/24 donepezil 5 mg tablet 5 mg PO QHS #60 tabs 12/07/23 05/08/24 methylphenidate HCl 36 mg 36 mg PO DAILY #90 tabs 03/29/24 05/08/24 tablet,extended release 24 hr acyclovir 200 mg capsule 200 mg PO DAILY 05/08/24 05/08/24 Previous Rx's ?Medication ?Instructions ?Recorded acetaminophen 500 mg tablet 1,000 mg (2 x 500 mg) PO Q8H PRN 11/06/19 pain #90 tabs memantine 5 mg tablet 10 mg (2 x 5 mg) PO BID #180 tabs 12/05/23 donepezil 5 mg tablet 5 mg PO QHS #60 tabs 12/07/23 methylphenidate HCl 36 mg 36 mg PO DAILY #90 tabs 03/29/24 tablet,extended release 24 hr Allergies Allergy/AdvReac Type Severity Reaction Status Date / Time ibuprofen Allergy Intermediate Other (See Verified 05/08/24 09:25 Comment) hydrochlorothiazide Allergy Unknown Other (See Verified 05/08/24 09:25 Comment) metformin Allergy Unknown Other (See Verified 05/08/24 09:25 Comment) tolmetin Allergy Unknown Skin Rash Verified 05/08/24 09:25 epoxy resin Allergy Skin Rash Verified 05/08/24 09:25 sodium bicarbonate AdvReac Other (See Verified 05/08/24 09:25 Comment) General Stated Complaint: Male Reproductive Problem MICHAEL: 5 Review of Systems Narrative: see HPI Exam Const General: cooperative, healthy appearing, comfortable and no acute distress Nutritional Appearance: average body habitus GI Inspection: normal to inspection and non-distended Palpation: soft and nontender Other: catheter draining normally Course Vital Signs Vital signs: Vital Signs Temperature 36.6 C 05/09/24 20:53 Pulse 82 05/09/24 20:53 Respiratory Rate 18 05/09/24 20:53 Pulse Oximetry 97 05/09/24 20:53 Temperature 36.6 C 05/09/24 20:53 Temperature Source Skin 05/09/24 20:53 Pulse 82 05/09/24 20:53 Respiratory Rate 18 05/09/24 20:53 Respiratory Effort Normal 05/09/24 20:54 Blood Pressure Position Sitting 05/09/24 20:53 Pulse Oximetry 97 05/09/24 20:53 Oxygen Delivery Method Room Air 05/09/24 20:53 Oxygen Flow Rate 0 05/09/24 20:53 Medical Decision Making Quality:SDOH Health Related Social Needs: No Data to Display PFSH All Active Problems (Updated 05/09/24 @ 20:55 by Oralia Seth) Leakage from urinary catheter (Acute) Hematuria (Acute) Hypomagnesemia (Acute) Incidental pulmonary nodule (Acute) Enlarged prostate (Acute) Acute retention of urine (Acute) Mild cognitive impairment, so stated (Acute) Palliative care encounter (Acute) Skull lesion (Acute) Memory deficit (Acute) Gait instability (Acute) Sensorineural hearing loss (SNHL) of both ears (Acute) Impacted cerumen, right ear (Acute) Otomycosis of left ear (Acute) Conductive hearing loss, external ear (Acute) Tendonitis (Acute) Gout of right wrist (Acute) Right wrist tendinitis (Acute) Right wrist effusion (Acute) Right wrist pain (Acute) Status post left rotator cuff repair (Acute 11/06/19) Left rotator cuff tear (Acute) Impacted cerumen of both ears (Acute) Conductive hearing loss (Chronic) Sensorineural hearing loss of combined sites, bilateral (Acute 03/14/14) Abnormal auditory perception of both ears (Acute 03/14/14) Medical History Dyspepsia Benign essential hypertension Obstructive sleep apnea Osteoarthritis of hands, bilateral Type 2 diabetes mellitus Adenomatous colon polyp Benign prostatic hyperplasia with urinary obstruction Orthostatic dizziness Perennial allergic rhinitis Knee pain, chronic Actinic keratosis Osteoarthritis of carpometacarpal joint Monoclonal gammopathy of undetermined significance Proteinuria Skin lesion of face Recurrent herpes simplex Hyperlipidemia ADD (attention deficit disorder) BPH (benign prostatic hyperplasia) GERD (gastroesophageal reflux disease) Chronic kidney disease (CKD) Allergic rhinitis Hypertension Hypothyroid Gout Diabetes Surgical History History of repair of right rotator cuff History of cystoscopy Cholecystectomy Family History Father Cancer bladder Mother Stroke Social History Smoking/Tobacco Use Status: Former Tobacco Use Smoking risk assessment performed?: Yes Alcohol Intake: former Drug use: Never Substance use type: does not use Housing: house Pets and animals: Yes (1 dog) Pets and animals: dog(s) Do you feel safe at home: Yes Do you feel safe in your relationship?: Yes
== END 2024-05-09 21:33 | disposition home or self-care (01) ==
PROVIDERS: Emergency Provider Nurse Practitioner Family; PCP Family Medicine
DX: T83.038A Leakage of other urinary catheter, initial encounter (principal)
CPT/HCPCS: 99281; 99282

== ENCOUNTER → 2024-05-20 12:53 | Outpatient (BNVA) | payer MEDICARE, OTHER, SELFPAY | PROVIDERS: PCP Family Medicine; Referring Provider Family Medicine; Visit Provider Urology | DX: R33.8 Other retention of urine (principal); N40.0 Benign prostatic hyperplasia without lower urinary tract symptoms | CPT/HCPCS: 99215 ==

== ENCOUNTER 2024-05-21 15:08 | Outpatient (REF) | payer MEDICARE, OTHER, SELFPAY ==
[2024-05-21 17:09] LABS: TSH 2.14 uIU/Ml (0.36-3.74)
== END 2024-05-21 15:09 | disposition home or self-care (01) ==
LOC: NCHCN 15:08
PROVIDERS: PCP Family Medicine; Visit Provider Family Medicine
DX: E03.9 Hypothyroidism, unspecified (principal)
CPT/HCPCS: 84443

== ENCOUNTER → 2024-05-24 15:26 | Outpatient (BNVA) | payer MEDICARE, OTHER, SELFPAY | PROVIDERS: PCP Family Medicine; Referring Provider Family Medicine; Visit Provider Urology | DX: R33.8 Other retention of urine (principal) | CPT/HCPCS: 76775 ==

== ENCOUNTER → 2024-06-04 13:21 | Outpatient (BNVA) | payer MEDICARE, OTHER, SELFPAY | PROVIDERS: PCP Family Medicine; Visit Provider Nurse Practitioner Adult Health | DX: G30.9 Alzheimer's disease, unspecified (principal); F02.80 Dementia in other diseases classified elsewhere, unspecified severity, without behavioral disturbance, psychotic disturbance, mood disturbance, and anxiety; R63.4 Abnormal weight loss | CPT/HCPCS: 99215; G2212 ==

== ENCOUNTER 2024-08-01 02:04 | Outpatient (CLI) | payer MEDICARE, BC, SELFPAY ==
--- NOTE | 2024-08-01 | DI.CT_ITS ---
Exam(s) CT CHEST WO EXAM: CT CHEST WO CLINICAL HISTORY: Solitary pulmonary nodule, R91.1. TECHNIQUE: Imaging protocol: Axial computed tomography images were obtained and coronal and sagittal reformatted images were created and reviewed. Computer aided detection (CAD) was utilized. COMPARISON: CT CT ABDOMEN PELVIS WO from 05/08/2024 FINDINGS: Tracheobronchial tree: Patent where visualized. No bronchiectasis is present. Pulmonary parenchyma: There is pulmonary fibrosis seen in the lung bases. No focal consolidating inf iltrates are present. There is a stable 7 mm ovoid nodule in the periphery of the right lower lobe ( series 2, image 101). No new pulmonary nodules are present. Mediastinum and Marjorie: No dominant adenopathy or fluid collection. The esophagus is unremarkable. Thyroid gland: Unremarkable. Pleura: No effusion or pneumothorax. Heart: The heart is not dilated. Three vessel coronary artery calcification is present. No pericardi al effusion. Aorta: Thoracic aorta non-dilated. Atherosclerotic calcification is present. Upper abdomen: Unremarkable. Lymph nodes: Within normal limits. Soft tissues: Unremarkable. Bones:Within normal limits for the patient's age. IMPRESSION: Stable 7 mm pulmonary nodule in the right lower lobe. No new pulmonary nodules. Solitary noncalcified solid nodules measuring 6???8 mm in patients with low clinical risk are recomme nded to undergo initial follow-up at 6???12 months depending on size, morphology, and patient prefere nce (grade 1C: strong recommendation, low- or [id number] evidence). (Low et al., 2017) For solitary solid noncalcified nodules measuring 6???8 mm in patients at high risk, an initial follo w-up examination is recommended at 6???12 months and again at 18???24 months (grade 1B: strong recomm endation, moderate quality evidence). (Low et al., 2017) RADIATION DOSE DELIVERED: 285.64mGy.cm Total DLP 285.64mGy.cm Total DLP DATA REPOSITORY: All CT scans at this facility are submitted to the National Radiology Data Registry (NRDR) Dose Index Registry (DIR) with the [employer] ([employer]). RADIATION OPTIMIZATION: All CT scans at this facility use at least one of these dose optimization te chniques: automated exposure control; mA and/or kV adjustment per patient size (includes targeted exa ms where dose is matched to clinical indication); or iterative reconstruction.
== END 2024-08-01 02:24 ==
PROVIDERS: PCP Family Medicine; Visit Provider Family Medicine
DX: R91.8 Other nonspecific abnormal finding of lung field (principal)
CPT/HCPCS: 71250

== ENCOUNTER → 2024-08-23 10:34 | Outpatient (BNVA) | payer MEDICARE, BC, SELFPAY | PROVIDERS: PCP Family Medicine; Referring Provider Family Medicine; Visit Provider Urology | DX: N40.1 Benign prostatic hyperplasia with lower urinary tract symptoms (principal); N13.8 Other obstructive and reflux uropathy | CPT/HCPCS: 51798; 99213 ==

== ENCOUNTER → 2024-09-03 12:36 | Outpatient (BNVA) | payer MEDICARE, BC, SELFPAY | PROVIDERS: PCP Family Medicine; Visit Provider Nurse Practitioner Adult Health | DX: G30.9 Alzheimer's disease, unspecified (principal); F02.80 Dementia in other diseases classified elsewhere, unspecified severity, without behavioral disturbance, psychotic disturbance, mood disturbance, and anxiety; R63.4 Abnormal weight loss | CPT/HCPCS: 99214 ==

== ENCOUNTER 2024-09-12 15:55 | Outpatient (REF) | payer MEDICARE, BC, SELFPAY ==
[2024-09-12 15:52] LABS: Abs Immature Grans 0.03 10^3/uL (0.0-0.06); Absolute Basophil Count 0.05 10^3/uL (0.0-0.2); Absolute Eosinophil Count 0.25 10^3/uL (0.0-0.7); Absolute Lymphocyte Count 1.78 10^3/uL (1.2-3.4); Absolute Monocyte Count 0.49 10^3/uL (0.1-0.8); Absolute Neutrophil Count 4.78 10^3/uL (1.2-6.7); Basophils % 0.7 %; Eosinophils % 3.4 %; HCT 36.6 % (40.0-50.0); Immature Grans % 0.4 %; Lymphocytes % 24.1 %; MCH 32.6 pg (27.0-33.0); MCHC 32.8 % (32.0-36.0); MCV 100 fL (80-95); Monocytes % 6.6 %; Neutrophils % 64.8 %; Platelet Count 181 10^3/uL (130-400); RBC 3.68 10^6/uL (4.36-5.78); RDW 14.7 % (11.8-14.1); RDW-SD 53.6 fL; WBC 7.38 10^3/uL (4.4-10.8)
[2024-09-12 16:19] LABS: ALT 27 U/L (16-63); AST 14 U/L (15-37); Albumin 3.5 g/dL (3.4-5.0); Alkaline Phosphatase 129 U/L (46-116); Anion Gap 13.3 mmol/L (3-11); BUN 62 mg/dL (7-18); Bilirubin, Total 0.37 mg/dL (0.2-1.0); CO2 18.7 mmol/L (21.0-32.0); CREATININE 2.8 mg/dL (0.70-1.30); Calcium 9.6 mg/dL (8.5-10.1); Chloride 112 mmol/L (98-107); Estimated GFR 21.31 (mL/min/1.73m2); Glucose 115 mg/dL (74-106); PHOSPHORUS 3.8 mg/dL (2.6-4.7); Potassium 4.3 mmol/L (3.5-5.1); Sodium 144 mmol/L (136-145); Total Protein 6.9 g/dL (6.4-8.2)
== END 2024-09-12 15:56 | disposition home or self-care (01) ==
LOC: NCHCN 15:55
PROVIDERS: PCP Family Medicine; Visit Provider Family Medicine
DX: N18.4 Chronic kidney disease, stage 4 (severe) (principal)
CPT/HCPCS: 80053; 84100; 85025

== ENCOUNTER 2025-03-26 21:41 | Outpatient (REF) | payer MEDICARE, BC, SELFPAY ==
[2025-03-26 21:11] LABS: HCT 38.3 % (40.0-50.0); HGB 12.3 g/dL (13.5-17.5); MCH 32.3 pg (27.0-33.0); MCHC 32.1 % (32.0-36.0); MCV 101 fL (80-95); MPV 9.9 fL (8.0-11.0); Platelet Count 248 10^3/uL (130-400); RBC 3.81 10^6/uL (4.36-5.78); RDW 12.7 % (11.8-14.1); RDW-SD 46.6 fL; WBC 9.79 10^3/uL (4.4-10.8)
[2025-03-26 21:23] LABS: ALT 20 U/L (16-63); AST 14 U/L (15-37); Albumin 2.9 g/dL (3.4-5.0); Alkaline Phosphatase 141 U/L (46-116); Anion Gap 12.4 mmol/L (3-11); BUN 44 mg/dL (7-18); Bilirubin, Total 0.4 mg/dL (0.2-1.0); CO2 25.6 mmol/L (21.0-32.0); CREATININE 2.6 mg/dL (0.70-1.30); Calcium 9.1 mg/dL (8.5-10.1); Chloride 105 mmol/L (98-107); Estimated GFR 23.29 (mL/min/1.73m2); Glucose 120 mg/dL (74-106); Magnesium 1.9 mg/dL (1.8-2.4); PHOSPHORUS 2.8 mg/dL (2.6-4.7); Potassium 4.3 mmol/L (3.5-5.1); Sodium 143 mmol/L (136-145); Total Protein 6.6 g/dL (6.4-8.2); Uric Acid 6.3 mg/dL (3.5-7.2)
== END 2025-03-26 21:42 | disposition home or self-care (01) ==
LOC: NCHCN 21:41
PROVIDERS: PCP Family Medicine; Visit Provider Family Medicine
DX: M10.9 Gout, unspecified (principal)
CPT/HCPCS: 80053; 85027; 83735; 84100; 84550

== ENCOUNTER → 2025-03-31 13:32 | Outpatient (BNVA) | payer MEDICARE, BC, SELFPAY | PROVIDERS: PCP Family Medicine; Referring Provider Family Medicine; Visit Provider Urology | DX: N40.1 Benign prostatic hyperplasia with lower urinary tract symptoms (principal); N13.8 Other obstructive and reflux uropathy; R39.9 Unspecified symptoms and signs involving the genitourinary system | CPT/HCPCS: 99214; 51798 ==

== ENCOUNTER 2025-04-22 13:42 | Outpatient (CLI) | payer MEDICARE, BC, SELFPAY ==
--- NOTE | 2025-04-22 | DI.RAD_ITS ---
Exam(s) XR LUMBAR SPINE COMPLETE EXAM: XR LUMBAR SPINE COMPLETE CLINICAL HISTORY: ACUTE RT SIDED LOW BACK PAIN, RT, M54.50. TECHNIQUE: 2D digital imaging was performed. COMPARISON: No exams were available for comparison FINDINGS: Five views There is no evidence of fracture. There is grade 1 degenerative anterolisthesis of L4 upon L5, this related to facet arthropathy. There are no pars defects evident. There is minimal if any significant disc space narrowing at this level. There is no disc space narrowing L5-S1 level. There is minimal disc space narrowing at L3-4. There is no significant scoliosis. Sacroiliac joints appear unremarkable. Vascular calcification is seen in the abdominal aorta and iliac arteries. Bone density is age-appropriate and there are no significant osseous lesions evident. IMPRESSION: There is grade 1 degenerative anterolisthesis of L4 upon L5. There is multilevel facet arthropathy in the mid-lower lumbar spine. No scoliosis. DATA REPOSITORY: RADIATION DOSE DELIVERED:
--- NOTE | 2025-04-22 | DI.RAD_ITS ---
Exam(s) XR HIP PELVIS ADULT BL EXAM: XR HIP PELVIS ADULT BL CLINICAL HISTORY: ACUTE RT LOW BACK PAIN. TECHNIQUE: 2D digital imaging was performed. COMPARISON: No exams were available for comparison FINDINGS: 3 views No evidence of pelvic nor hip fracture. There is no significant hip joint space narrowing. Sacroiliac joints appear unremarkable. Bone density normal. No osseous lesions IMPRESSION: No significant radiographic findings in the pelvis and hips. There is degenerative change in the lumbar spine. See separate dictation for lumbar spine. DATA REPOSITORY: RADIATION DOSE DELIVERED:
== END 2025-04-22 14:02 ==
LOC: DI 13:43
PROVIDERS: PCP Family Medicine; Visit Provider Nurse Practitioner Family
DX: M51.362 Other intervertebral disc degeneration, lumbar region with discogenic back pain and lower extremity pain (principal)
CPT/HCPCS: 73521; 72110

== ENCOUNTER → 2025-05-15 12:44 | Outpatient (BNVA) | payer MEDICARE, BC, SELFPAY | PROVIDERS: PCP Family Medicine; Referring Provider Family Medicine; Visit Provider Nurse Practitioner Adult Health | DX: G30.9 Alzheimer's disease, unspecified (principal); F02.80 Dementia in other diseases classified elsewhere, unspecified severity, without behavioral disturbance, psychotic disturbance, mood disturbance, and anxiety; M25.551 Pain in right hip | CPT/HCPCS: 99214 ==

== ENCOUNTER 2025-06-27 12:30 | Outpatient (REF) | payer MEDICARE, BC, SELFPAY ==
[2025-06-27 14:36] LABS: Abs Immature Grans 0.03 10^3/uL (0.0-0.06); HCT 38.5 % (40.0-50.0); HGB 12.7 g/dL (13.5-17.5); Immature Grans % 0.4 %; MCH 33.0 pg (27.0-33.0); MCHC 33.0 % (32.0-36.0); MCV 100 fL (80-95); MPV 9.7 fL (8.0-11.0); Platelet Count 196 10^3/uL (130-400); RBC 3.85 10^6/uL (4.36-5.78); RDW 14.1 % (11.8-14.1); RDW-SD 51.6 fL; WBC 7.40 10^3/uL (4.4-10.8)
[2025-06-27 15:03] LABS: ALT 20 U/L (16-63); AST 16 U/L (15-37); Albumin 3.2 g/dL (3.4-5.0); Alkaline Phosphatase 129 U/L (46-116); Anion Gap 10.8 mmol/L (3-11); BUN 47 mg/dL (7-18); Bilirubin, Total 0.5 mg/dL (0.2-1.0); CO2 23.2 mmol/L (21.0-32.0); Calcium 9.7 mg/dL (8.5-10.1); Chloride 107 mmol/L (98-107); Estimated GFR 21.31 (mL/min/1.73m2); Glucose 159 mg/dL (74-106); Hemoglobin A1C 5.7 % (<5.7); Potassium 4.4 mmol/L (3.5-5.1); Sodium 141 mmol/L (136-145); TSH (W/Ref FT4) 1.89 uIU/mL (0.36-3.74); Total Protein 6.6 g/dL (6.4-8.2); Uric Acid 5.8 mg/dL (3.5-7.2)
== END 2025-06-27 12:31 | disposition home or self-care (01) ==
LOC: NCHCN 12:30
PROVIDERS: PCP Family Medicine; Visit Provider Nurse Practitioner Family
DX: E11.9 Type 2 diabetes mellitus without complications (principal); E03.9 Hypothyroidism, unspecified; M10.9 Gout, unspecified; N18.4 Chronic kidney disease, stage 4 (severe)
CPT/HCPCS: 80053; 83036; 84443; 84550; 85025

== ENCOUNTER 2025-08-04 03:32 | Outpatient (CLI) | payer MEDICARE, BC, SELFPAY ==
--- NOTE | 2025-08-04 | DI.MRI_ITS ---
Exam(s) MR BRAIN WO EXAM: MR BRAIN WO CLINICAL HISTORY: ABNL BRAIN MRI, R90.89, ABNORMALITY LT OCCIPITAL BONE ON MRI 04/14/23 TECHNIQUE: Multiplanar multisequence MRI of the brain was performed. COMPARISON: CR XR SKULL 2V from 09/07/2021 MR MR BRAIN WO from 04/14/2023 FINDINGS: CALVARIUM: The previously described benign-appearing hyperintense focus in the lateral left occipital bone is unchanged from MRI scan of April 2023. There are no new osseous lesions identified. A benign appearing lipoma in the posterior left occipital region is unchanged. CEREBRAL PARENCHYMA: There is no evidence of intracranial hemorrhage, mass effect, or shift of midline structures. There are no extra-axial fluid collections. Ventricles are not enlarged or shifted. There is no new significant focal signal abnormality in the cerebellar hemispheres. Some increased signal in both sides of the ava is unchanged from previous and consistent with chronic ischemic changes. There is no abnormal signal in the midbrain and thalami. Minimal periventricular signal abnormality is unchanged. There is no significant focal signal abnormality evident on diffusion imaging to suggest acute ischemic event. There is symmetrical involutional change consistent with this patient's advanced age. Ventricular size is commensurate with the size of the overlying cortical sulci and there is no evidence to suggest normal pressure hydrocephalus. PITUITARY GLAND: No mass nor parasellar abnormality. No obvious abnormality in the cavernous sinuses. FLOW VOIDS: The expected flow void are noted. No evidence of obvious aneurysm nor obvious vascular malformation. PARANASAL SINUSES: There is mucosal thickening and opacification of the left maxillary sinus again noted, similar to April 2023. New mild mucosal thickening noted in the right maxillary sinus without fluid level. ORBITS: No obvious findings. IMPRESSION: No significant new intracranial findings when compared to the prior MRI scan of April 2023. The size of the benign-appearing focus of signal abnormality in the lateral left occipital bone is unchanged. There are no new bone lesions. Chronic ischemic changes in the ava and supra ventricular white matter remain unchanged from 2022. No new intracranial findings. Left maxillary sinus opacification is also unchanged from 2022. DATA REPOSITORY:
--- NOTE | 2025-08-04 14:40 | DI.CT_ITS ---
Exam(s) CT CHEST WO EXAM: CT CHEST WO CLINICAL HISTORY: SOLITARY PULMONARY NODULE, NODULE OF LUNG, R91.1. TECHNIQUE: Multi planar reconstructions were performed. CONTRAST MATERIAL: None COMPARISON: CT CT CHEST WO from 08/01/2024 FINDINGS: CHEST: LUNGS: There is some pulmonary fibrosis again noted in the anterior aspects of both lung bases. This exhibits minimal change from the previous 2023 CT scan. With respect of the previously present nodular densities, there is again noted a subpleural nodular density in the posterior aspect of the right lower lobe which exhibits minimal if any significant change from the previous two thousand twenty-four study, measuring approximately 9 mm by 6 mm. Is also an unchanged nodule in the mid left lung which is related to the mid aspect of the major fissure, unchanged. There are no new lung nodules. No new infiltrates nor pleural effusions MEDIASTINUM: There is no obvious hilar nor mediastinal adenopathy. Visualized thyroid unremarkable.No obvious axillary adenopathy CARDIAC: Heart size is normal. There is no pericardial effusion.Caliber of the thoracic aorta is within normal limits. VISUALIZED UPPER ABDOMEN:Gallbladder surgically absent. No abnormal adnexal masses. Spleen size normal. No ascites. OSSEOUS: Again noted is evidence of previous rotator cuff repair surgery in the right shoulder no fractures. No significant osseous lesions.. IMPRESSION: 1. Pulmonary fibrosis appears stable. There is also stable appearance of previously described nodule in the right lower lobe as well as the smaller 2nd nodule in the mid aspect of the opposite-left lung. 2. No pleural effusions and no intrathoracic adenopathy. RADIATION DOSE DELIVERED: 248.96mGy.cm Total DLP DATA REPOSITORY: All CT scans at this facility are submitted to the National Radiology Data Registry (NRDR) Dose Index Registry (DIR) with the [employer] ([employer]). RADIATION OPTIMIZATION: All CT scans at this facility use at least one of these dose optimization techniques: automated exposure control; mA and/or kV adjustment per patient size (includes targeted exams where dose is matched to clinical indication); or iterative reconstruction.
== END 2025-08-04 03:52 ==
PROVIDERS: PCP Nurse Practitioner Family; Visit Provider Nurse Practitioner Family
DX: R91.8 Other nonspecific abnormal finding of lung field (principal)
CPT/HCPCS: 71250; 70551

== ENCOUNTER → 2025-10-07 10:29 | Outpatient (BNVA) | payer MEDICARE, BC, SELFPAY | PROVIDERS: PCP Nurse Practitioner Family; Referring Provider Nurse Practitioner Family; Visit Provider Urology | DX: N40.0 Benign prostatic hyperplasia without lower urinary tract symptoms (principal); N13.8 Other obstructive and reflux uropathy | CPT/HCPCS: 99213; 51798 ==